=== PATIENT | female | born 1950 | race Caucasian/White ===

== ENCOUNTER → 2018-10-13 18:42 | Outpatient (CLI) | payer MEDICARE, BC, SELFPAY ==
--- NOTE | 2018-10-13 18:48 | DI.MRI.S_ITS ---
PROCEDURE: MR KNEE LT WO CON INDICATIONS: INTERNAL DERANGEMENT OF LEFT KNEE TECHNIQUE: Noncontrast sagittal PD fast spin echo and T2 fast spin echo with fat saturation, sagittal 3-D FLASH with fat saturation; coronal T1 spin echo and PD fast spin echo with fat saturation, and axial PD fast spin echo with fat saturation through the knee. COMPARISON: [facility] Outside Film, RG, KNEE 3VW (LT), 07/30/2018, 20:38. FINDINGS: Image quality: Excellent. Menisci: Lateral meniscus appears intact. There is horizontal tear of medial meniscal anterior horn, body and posterior horn with possible extension to the superior articular surface, for example image 17 series 10 there is also partial extrusion.. Cruciate ligaments: The anterior and posterior cruciate ligaments appear intact. Medial structures: The medial collateral ligament appears intact. The posterior oblique ligament, semimembranosus tendon insertions, oblique popliteal ligament, and meniscocapsular junction appear intact. Mild pes anserinus insertional tendinopathy and/or low-grade bursitis. Lateral structures: Age-indeterminate low-grade sprain of the proximal lateral collateral ligament. The long and short heads of the biceps femoris tendon appear intact. The popliteus tendon appears normal; the popliteofibular ligament appears intact. The posterosuperior and anteroinferior popliteomeniscal fascicles appear intact. The arcuate and fabellofibular ligaments appear intact, on either side of the lateral inferior geniculate artery. Iliotibial band appears normal. Anterior structures: The quadriceps and patellar tendons appear intact. Minimal soft tissue edema adjacent to the proximal patellar tendon Borderline patella rasheed. No femoral trochlear dysplasia or ventral trochlear prominence. No edema in the infrapatellar fat pad. Bones and cartilage: No bone marrow contusions or fractures. Within the medial compartment, diffuse partial thickness loss of the femoral and tibial articular cartilage there Within the lateral compartment, there is intrasubstance signal change involving the weightbearing tibial cartilage without focal defect. Within the patellofemoral compartment, there is full-thickness loss overlying the median patellar ridge with underlying subchondral marrow edema. The femoral trochlear cartilage appears grossly intact. Joint space: Small Helms's cyst is seen measuring approximately 5.2 cm in the cephalocaudad dimension. No intra-articular loose bodies identified. IMPRESSION: Horizontal tear of the medial meniscus as above, with partial extrusion. Degenerative joint disease, most advanced in the medial and patellofemoral compartment as above. Borderline patella rasheed. Small Helms's cyst. Mild insertional pes anserinus tendinopathy and/or developing early bursitis Dictated by: Fermin Mares M.D. on 10/14/2018 at 9:21 Approved by: Fermin Mares M.D. on 10/14/2018 at 9:31
== END ==
PROVIDERS: Visit Provider Orthopaedic Surgery
DX: S83.242A Other tear of medial meniscus, current injury, left knee, initial encounter (principal); M17.12 Unilateral primary osteoarthritis, left knee; M71.22 Synovial cyst of popliteal space [Baker], left knee
CPT/HCPCS: 73721

== ENCOUNTER 2022-04-13 18:14 | Inpatient (IN) | payer MEDICARE, BC, SELFPAY ==
[2022-04-13] VITALS (16 sets, daily range): BP systolic 89–132; BP diastolic 54–70; PULSE 58–75; RESP 9–27; TEMP 36.2–36.4; O2SAT 95–100; BMI 26.2
--- NOTE | 2022-04-13 18:29 | DI.RAD.S_ITS ---
PROCEDURE: XR CHEST 1V INDICATIONS: chest pain TECHNIQUE: One view of the chest was acquired. COMPARISON: None. FINDINGS: Surgical changes and devices: None. Lungs and pleura: Lungs are clear. No pleural effusions or pneumothorax. Mediastinum: Mediastinal contours appear normal. Heart size is normal. Bones and chest wall: No suspicious bony lesions. Overlying soft tissues appear unremarkable. IMPRESSION: No acute cardiopulmonary abnormality. Dictated by: Alfredito Correa M.D. on 04/13/2022 at 18:48 Approved by: Alfredito Correa M.D. on 04/13/2022 at 18:48
--- NOTE | 2022-04-13 18:37 | ED_ITS ---
HPI - Dizziness General Chief Complaint: Dizziness Stated Complaint: nausea/vomitting, low bp, type 1 diabetic Time Seen by Provider: 04/13/22 18:22 Source: patient Mode of arrival: Family Vehicle History of Present Illness HPI Narrative: Patient is a 71-year-old female history of insulin-dependent diabetes presenting today with sudden onset of dizziness and nausea. Apparently at breakfast she started getting very dizzy. She feels like she is on an amusement park ride. Unable to open her eyes. She has been vomiting most of the day. She has no numbness tingling or weakness. No trouble walking. She denies any chest pain or palpitations. She overall does not feel well. She has never had any history of vertigo but or. She initially thought that her glucose was low, 1 reading at home with an Accu-Chek of 50. She drinks juice. However it currently is 155. She was feeling her normal self yesterday. No fever or chills. No known coronary artery disease or CVA. The states they took her blood pressure at home it was in the 80s. She felt dizzy she said it did not stay there and it came back up. Related Data Home Medications Medication Instructions Recorded Confirmed insulin glargine 100 unit/mL 100 unit SUBCUT DAILY 05/13/20 05/13/20 subcutaneous solution (Lantus U-100 Insulin) insulin lispro 100 unit/mL 1 sliding scale dose SUBCUT 05/13/20 05/13/20 subcutaneous cartridge (Humalog USEASDIRECTD U-100 Insulin) Allergies Allergy/AdvReac Type Severity Reaction Status Date / Time No Known Drug Allergies Allergy Verified 04/13/22 18:25 Review of Systems Review of Systems Narrative: GENERAL: Denies chills, fatigue, malaise, fever, sweats, travel HEENT: Denies sinus pain, ear pain, sore throat, difficulty swallowing, neck pain RESPIRATORY: Denies dyspnea, cough, wheezing, hemoptysis, sputum. CARDIOVASCULAR: Denies chest pain, palpitations, orthopnea, edema GASTROINTESTINAL: Denies nausea, vomiting, abdominal pain, diarrhea, constipation, melena. : Denies dysuria, frequency, incontinence, hematuria, urinary retention, flank pain. MUSCULOSKELETAL: Denies weakness, joint pain, or bony pain SKIN: No rash, no erythema, no pruritus NEUROLOGIC: See HPI PSYCHIATRIC: No concerning psychosocial issues. 12 point review of systems is negative except for those stated above and HPI Patient History Medical History (Updated 04/13/22 @ 23:24 by Leandra Mares DO) Diabetes Family History (Updated 04/14/22 @ 00:41 by Emmie Lozoya MD) Father Cancer COPD (chronic obstructive pulmonary disease) Mother No problems noted. Social History household members: spouse Smoking Status: Former smoker Smoking Status: Former smoker tobacco type: cigarettes alcohol intake frequency: holidays/special occasions only Substance Use Type: does not use Exam Initial Vital Signs Initial Vital Signs: Vital Signs Pulse Oximetry 97 04/13/22 18:20 GENERAL: Alert pleasant 71-year-old female appears uncomfortable keeping eyes closed HEENT: Head atraumatic,EOMI, pupils reactive, face symmetric,+ nystagmus when looking to the right,moist mucous membranes CARDIOVASCULAR: Regular rate and rhythm without murmurs, rubs or gallops. RESPIRATORY: Breath sounds equal bilaterally, no wheezes rales or rhonchi. ABDOMEN: Soft, nontender. Normoactive bowel sounds all 4 quadrants. No guarding or rebound. EXTREMITIES: Normal range of motion, no clubbing or edema. Neurovascularly intact NEUROLOGICAL: Alert and oriented x4.Normal gait and speech. Cranial nerves II through XII grossly intact. Good [id number], good [id number], strength equal bilaterally, no dysarthria or aphasia, sensation in tact to soft touch bilaterally, no visual changes, no facial droop SKIN: Warm, dry, no laceration, no petechiae, no rashes or lesions. Scores NIH Stroke Scale Level of Conciousness: Alert, keenly responsive Ask month/age: Answers both questions correctly. Open/close eyes, close hand: Performs both tasks correctly Best gaze horizontal: Normal Visual esposito: No visual loss Facial palsy: Normal symetrical movement Left arm drift: No drift for full 10 sec Right arm drift: No drift for full 10 sec Left leg drift: No drift for full 5 sec Right leg drift: No drift for full 5 sec Limb ataxia: Absent Sensory on face/arms/legs: Normal, no sensory loss Best language: No aphasia, normal Dysarthria: Normal Extinction or inattention: No abnormality Total NIH Stroke scale score: 0 Course Orders Ordered: ED Orders 04/13/22 18:29 XR chest 1V Stat 04/13/22 18:41 CT angio head and neck Stat CT head/brain wo con Stat 04/13/22 19:15 Blood Culture Stat Complete Blood Count AUTO DIFF Stat Comprehensive Metabolic Panel Stat Lactate (Lactic Acid) Stat Lipase Stat Magnesium Stat Procalcitonin Stat Troponin & CK Cardiac Panel Stat 04/13/22 19:44 Urine Culture Stat Urine Microscopic Stat 04/13/22 22:49 COVID19 -Nasal RAPID/Pre-Proc Stat Acetaminophen (Acetaminophen 325 Mg Tablet) 650 mg PO Q6HR PRN PRN Reason: Fever Aspirin (Aspirin Ec 81 Mg Tablet) 81 mg PO DAILY [facility] Atorvastatin Calcium (Atorvastatin 20 Mg Tablet) 80 mg PO BEDTIME [facility] Enoxaparin Sodium (Enoxaparin 40 Mg/0.4 Ml Syringe) 40 mg SUBCUT DAILY [facility] Sodium Chloride (Normal Saline 0.45%) 1,000 mls @ 100 mls/hr IV CONT [facility] Last Admin: 04/14/22 01:49 Dose: 100 mls/hr Documented by: SCOTT Ceftriaxone Sodium 1,000 mg/ (Sodium Chloride) 100 mls @ 200 mls/hr IV Q24H [facility] Last Admin: 04/14/22 01:49 Dose: 200 mls/hr Documented by: SCOTT Meclizine HCl (Meclizine Hcl 12.5 Mg Tablet) 25 mg PO Q6HR PRN PRN Reason: Vertigo Naloxone HCl (Naloxone 0.4 Mg/Ml Vial) 0.2 mg IV Q2MIN PRN PRN Reason: Opiate Reversal Ondansetron HCl (Ondansetron 4 Mg/2 Ml Inj) 4 mg IV Q8HR PRN PRN Reason: Nausea And Vomiting Discontinued Medications Sodium Chloride (Normal Saline 0.9%) 1,000 mls @ 1,000 mls/hr IV BOLUS ONE Stop: 04/13/22 19:39 Last Infusion: 04/13/22 20:53 Dose: 0 mls/hr Documented by: Admin: 04/13/22 18:41 Dose: 1,000 mls/hr Documented by: MARCO Ceftriaxone Sodium 1,000 mg/ (Sodium Chloride) 100 mls @ 200 mls/hr IV NOW ONE Stop: 04/13/22 20:30 Last Infusion: 04/13/22 21:30 Dose: 0 mls/hr Documented by: Admin: 04/13/22 20:42 Dose: 200 mls/hr Documented by: MARCO Sodium Chloride (Normal Saline 0.9%) 1,000 mls @ 1,000 mls/hr IV BOLUS ONE Stop: 04/13/22 21:28 Last Infusion: 04/13/22 22:36 Dose: 0 mls/hr Documented by: Admin: 04/13/22 20:43 Dose: 1,000 mls/hr Documented by: MARCO Meclizine HCl (Meclizine Hcl 12.5 Mg Tablet) 25 mg PO NOW ONE Stop: 04/13/22 18:42 Last Admin: 04/13/22 19:05 Dose: 25 mg Documented by: MARCO Meclizine HCl (Meclizine Hcl 12.5 Mg Tablet) 25 mg PO NOW ONE Stop: 04/13/22 21:57 Last Admin: 04/13/22 22:02 Dose: 25 mg Documented by: MARCO Ondansetron HCl (Ondansetron 4 Mg/2 Ml Inj) 4 mg IV NOW ONE Stop: 04/13/22 18:42 Last Admin: 04/13/22 19:05 Dose: 4 mg Documented by: MARCO Ondansetron HCl (Ondansetron 4 Mg/2 Ml Inj) 4 mg IV NOW ONE Stop: 04/13/22 20:30 Last Admin: 04/13/22 20:42 Dose: 4 mg Documented by: MARCO Pantoprazole Sodium (Pantoprazole 40 Mg Vial) 40 mg IV NOW ONE Stop: 04/13/22 20:30 Last Admin: 04/13/22 20:42 Dose: 40 mg Documented by: MARCO Vital Signs Vital signs: Vital Signs - 8 hr 04/13/22 19:00 04/13/22 19:30 04/13/22 20:27 Pulse Rate 65 58 L 68 Respiratory Rate 20 12 27 H Blood Pressure Pulse Oximetry 100 100 95 04/13/22 20:29 04/13/22 20:30 04/13/22 21:00 Pulse Rate 65 64 65 Respiratory Rate 11 L 9 L 14 Blood Pressure 107/63 108/57 L 98/60 Pulse Oximetry 100 99 04/13/22 21:30 04/13/22 21:31 04/13/22 22:00 Pulse Rate 64 64 75 Respiratory Rate 12 20 14 Blood Pressure 89/54 L 96/54 L 116/70 Pulse Oximetry 04/13/22 22:30 Pulse Rate 58 L Respiratory Rate 12 Blood Pressure 102/56 L Pulse Oximetry 100 MDM - Dizziness Lab Data Result diagrams: 04/13/22 19:15 04/13/22 19:15 Labs: Lab Results 04/13/22 04/13/22 04/13/22 Range/Units 19:15 19:15 19:15 WBC 7.4 (4.5-11.0) X10^3/uL RBC 4.17 (4.0-5.2) X10^6/uL Hgb 11.7 L (12.0-16.0) g/dL Hct 34.7 L (36-46) % MCV 83.2 (80-100) fL MCH 28.1 (26-34) PG MCHC 33.7 (30-36) % RDW 13.2 (11.6-14.8) % Plt Count 235 (150-400) X10^3/uL Neut % (Auto) 67.8 (50-75) % Lymph % (Auto) 21.6 L (25-40) % [place] % (Auto) 8.1 (3-14) % Eos % (Auto) 1.6 L (2-4) % Baso % (Auto) 0.9 (0-2) % Neut # (Auto) 5000 (6961-2407) /uL Lymph # (Auto) 1600 (4500-7417) /uL [place] # (Auto) 600 (0-900) /uL Eos # (Auto) 100 (0-450) /uL Baso # (Auto) 100 (0-100) /uL Sodium 130 L (137-145) mmol/L Potassium 4.4 (3.4-5.1) mmol/L Chloride 100 (98-107) mmol/L Carbon Dioxide 22 (22-32) mmol/L BUN 18 H (7-17) mg/dL Creatinine 0.65 (0.52-1.04) mg/dL Estimated GFR > 60 (>60) mL/min BUN/Creatinine Ratio 27.7 H (6-22) Glucose 145 H (80-110) mg/dL Lactate 1.1 (0.7-2.1) mmol/L Calcium 8.1 L (8.4-10.2) mg/dL Magnesium 1.6 (1.6-2.3) mg/dL Total Bilirubin 0.7 (0.2-1.3) mg/dL AST 24 (14-36) IU/L ALT 18 (<35) IU/L Alkaline Phosphatase 83 (38-126) U/L Total Creatine Kinase 140 H (30-135) U/L CK-MB (CK-2) 2.06 (<2.37) ng/mL CK-MB (CK-2) Rel Index 1.5 (1.5-5.0) % Troponin I < 0.012 (0.01-0.034) ng/mL Total Protein 7.7 (6.3-8.2) g/dL Albumin 3.7 (3.5-5.0) g/dL Globulin 4.0 (1.7-4.1) g/dL Albumin/Globulin Ratio 0.9 L (1.0-2.8) Lipase 31 (23-300) U/L Procalcitonin (<0.5) ng/mL Urine RBC (0-5/HPF) Urine WBC (0-5/HPF) Ur Squamous Epith Cells (0-5/HPF) Ur Transition Epith Cell (0-5/HPF) Urine Bacteria (None) Ur Culture Indicated? SARS-CoV-2 (PCR) (Negative) 04/13/22 04/13/22 04/13/22 Range/Units 19:15 19:44 22:49 WBC (4.5-11.0) X10^3/uL RBC (4.0-5.2) X10^6/uL Hgb (12.0-16.0) g/dL Hct (36-46) % MCV (80-100) fL MCH (26-34) PG MCHC (30-36) % RDW (11.6-14.8) % Plt Count (150-400) X10^3/uL Neut % (Auto) (50-75) % Lymph % (Auto) (25-40) % [place] % (Auto) (3-14) % Eos % (Auto) (2-4) % Baso % (Auto) (0-2) % Neut # (Auto) (2332-6102) /uL Lymph # (Auto) (4132-9051) /uL [place] # (Auto) (0-900) /uL Eos # (Auto) (0-450) /uL Baso # (Auto) (0-100) /uL Sodium (137-145) mmol/L Potassium (3.4-5.1) mmol/L Chloride (98-107) mmol/L Carbon Dioxide (22-32) mmol/L BUN (7-17) mg/dL Creatinine (0.52-1.04) mg/dL Estimated GFR (>60) mL/min BUN/Creatinine Ratio (6-22) Glucose (80-110) mg/dL Lactate (0.7-2.1) mmol/L Calcium (8.4-10.2) mg/dL Magnesium (1.6-2.3) mg/dL Total Bilirubin (0.2-1.3) mg/dL AST (14-36) IU/L ALT (<35) IU/L Alkaline Phosphatase (38-126) U/L Total Creatine Kinase (30-135) U/L CK-MB (CK-2) (<2.37) ng/mL CK-MB (CK-2) Rel Index (1.5-5.0) % Troponin I (0.01-0.034) ng/mL Total Protein (6.3-8.2) g/dL Albumin (3.5-5.0) g/dL Globulin (1.7-4.1) g/dL Albumin/Globulin Ratio (1.0-2.8) Lipase (23-300) U/L Procalcitonin 0.05 (<0.5) ng/mL Urine RBC None seen (0-5/HPF) Urine WBC 5-10/hpf H (0-5/HPF) Ur Squamous Epith Cells 1-5 /hpf (0-5/HPF) Ur Transition Epith Cell 0-1/hpf (0-5/HPF) Urine Bacteria Many (>30) H (None) Ur Culture Indicated? Specimen cultured SARS-CoV-2 (PCR) Negative (Negative) Urine Dip Bedside Urine Glucose Negative Bedside Urine Bilirubin - Negative Bedside Urine Ketone + 15 Urine Specific [place] 1.01 Bedside Urine Occult Blood - Negative Bedside Urine pH 6.5 Bedside Urine Protein - Negative Bedside Urine Urobilinogen - Negative Bedside Urine Nitrite + Positive Bedside Urine Leukocytes + [address] scan - head: Radiologist's Impression: Signed Patient: Larisa Chavez MR#: [id number] : 1950 Acct:[id number] Age/Sex: 71 / F Date of Service: 04/13/22 Loc: ED Accession Number: [id number] ?? Procedure: CT head/brain wo con Ordering Provider: Leandra Mares D.O. PROCEDURE:? CT HEAD/BRAIN WO CON ? INDICATIONS:? dizzy ? TECHNIQUE:? Noncontrast 4.5 mm thick angled axial sections acquired from the foramen magnum to the vertex, with coronal and sagittal reformats.? For radiation dose reduction, the following was used:? automated exposure control, adjustment of mA and/or kV according to patient size.? ? COMPARISON:? None. ? FINDINGS:? Image quality:? Excellent.? ? CSF spaces:? Basal cisterns are patent.? No extra-axial fluid collections.? Ventricles are normal in size and shape.? ? Brain:? No midline shift.? No intracranial masses or hemorrhage.? Palomo-white matter interface is normal.? Moderate cerebral and cerebellar volume loss with multifocal white matter chronic ischemic change noted. ? Skull and face:? Calvarium and visualized facial bones are intact, without suspicious lesions.? ? Sinuses:? Visualized sinuses and mastoids are clear.? ? IMPRESSION:? Atrophy and chronic ischemic change without acute hemorrhage or mass effect ? ? ? Approved by: Alin Beltre M.D. on 04/13/2022 at 18:20 CTA - brain/neck: Radiologist's Impression: DISHA Este[place] [id number] CT Scan Report Signed Patient: Larisa Chavez MR#: [id number] : 1950 Acct:[id number] Age/Sex: 71 / F Date of Service: 04/13/22 Loc: ED Accession Number: [id number] ?? Procedure: CT angio head and neck Ordering Provider: Leandra Mares D.O. PROCEDURE:? CT ANGIO HEAD AND NECK ? INDICATIONS:? dizzy ? TECHNIQUE:? Pre-contrast 4.5 mm thick sections acquired from the foramen magnum to the v ertex.? After the administration of intravenous contrast, 1 mm thick sections acquired from the aortic arch through the [place] of [place].? Post-contrast 4.5 mm thick sections then re- acquired from the foramen magnum to the vertex.? For radiation dose reduction, the following was used:? automated exposure control, adjustment of mA and/or kV according to patient size.? ? ? COMPARISON:? None. ? FINDINGS: ? Cerebral CT Angiogram: ? Internal carotid arteries:? No acute findings.? Intracranial ICA are patent with no significant stenosis.? No occlusion.? No aneurysm. Anterior cerebral arteries:? Unremarkable.? No significant stenosis.? No occlusion.? No aneurysm. Middle cerebral arteries:? Unremarkable.? No significant stenosis.? No occlusion.? No aneurysm. Posterior cerebral arteries:? Hypoplasia/aplasia of the left P1 RECONCILER noted. The P2 segment is supplied by a widely patent posterior communicating artery. Remainder of the distal vasculature unremarkable. Basilar artery:? Unremarkable.? No significant stenosis.? No occlusion.? No aneurysm. Vertebral arteries:? Unremarkable as visualized. Dural venous sinuses:? Unremarkable given phase of enhancement. Other:? Arterial phase brain parenchyma is unremarkable. ? Neck CT Angiogram: ? Internal carotid arteries:? Unremarkable.? No significant stenosis.? No dissection or occlusion. Common carotid arteries:? Unremarkable.? No significant stenosis.? No dissection or occlusion. External carotid arteries:? Unremarkable.? No occlusion. Vertebral arteries:? Unremarkable.? No significant stenosis.? No dissection or o cclusion. Other: None. ? Aortic Arch and Mediastinum:? Partially visualized aortic arch unremarkable without evidence of aneurysm. Origins of the great vessels unremarkable. ? IMPRESSION: ? 1. Unremarkable CT angiogram of the head and neck without evidence of large vessel occlusion, aneurysm or vascular malformation ? ? Note: Any reported proximal ICA stenosis was calculated using NASCET guideline s.? Approved by: Alin Beltre M.D. on 04/13/2022 at 18:19? ECG Data Interpretation: Normal sinus rhythm rate 61 DE interval 160 QRS [address] changes no T- wave inversion, no pirors to compare MDM Narrative Medical decision making narrative: The patient has no focal deficits but she does have nystagmus. Upon ambulation to the restroom she had obvious ataxia and needed a quite a bit of assistance. She is found to have a UTI with nitrates in her urine. No signs of sepsis she has no leukocytosis or fever although she is complaining of being quite chilled here in the ED. CT head and CT angio are negative. A blood pressure started d ecreasing some is she is given 2 L of IV fluid never really hypotensive. She is given 2 doses of meclizine the 1st dose did seem to help some. She has also been given 2 doses of Zofran she is no longer vomiting but she still complains of quite a bit of nausea. Upon re trial of ambulation high did it myself she is unable to take steps by herself at all. She needs a walker which is completely abnormal for her. 3rd for possible posterior stroke. Orthostatic hypotension should really not cause significant ataxia and moves the orthostatic hypotension should be resolved after 2 L of normal saline. She does have a UTI over the should not cause significant ataxia either. She is very unsafe discharge home. Her elderly is not able to help her. Dr. Marcum accepts patient Discharge Plan Departure Patient Disposition: Admitted as Observation Clinical Impression: Brain TIA, Acute UTI Admit Date/Time: 04/13/22 22:54 Admit Provider: Emmie Lozoya
[2022-04-13] MEDS: SODIUM CHLORIDE 0.9% 1,000 ML 1000 ML IV ×2 (18:41→20:43)
--- NOTE | 2022-04-13 18:41 | DI.CT.S_ITS ---
PROCEDURE: CT HEAD/BRAIN WO CON INDICATIONS: dizzy TECHNIQUE: Noncontrast 4.5 mm thick angled axial sections acquired from the foramen magnum to the vertex, with coronal and sagittal reformats. For radiation dose reduction, the following was used: automated exposure control, adjustment of mA and/or kV according to patient size. COMPARISON: None. FINDINGS: Image quality: Excellent. CSF spaces: Basal cisterns are patent. No extra-axial fluid collections. Ventricles are normal in size and shape. Brain: No midline shift. No intracranial masses or hemorrhage. Palomo-white matter interface is normal. Moderate cerebral and cerebellar volume loss with multifocal white matter chronic ischemic change noted. Skull and face: Calvarium and visualized facial bones are intact, without suspicious lesions. Sinuses: Visualized sinuses and mastoids are clear. IMPRESSION: Atrophy and chronic ischemic change without acute hemorrhage or mass effect Approved by: Alin Beltre M.D. on 04/13/2022 at 18:20
--- NOTE | 2022-04-13 18:41 | DI.CT.S_ITS ---
PROCEDURE: CT ANGIO HEAD AND NECK INDICATIONS: dizzy TECHNIQUE: Pre-contrast 4.5 mm thick sections acquired from the foramen magnum to the vertex. After the administration of intravenous contrast, 1 mm thick sections acquired from the aortic arch through the [place] of [place]. Post-contrast 4.5 mm thick sections then re-acquired from the foramen magnum to the vertex. For radiation dose reduction, the following was used: automated exposure control, adjustment of mA and/or kV according to patient size. COMPARISON: None. FINDINGS: Cerebral CT Angiogram: Internal carotid arteries: No acute findings. Intracranial ICA are patent with no significant stenosis. No occlusion. No aneurysm. Anterior cerebral arteries: Unremarkable. No significant stenosis. No occlusion. No aneurysm. Middle cerebral arteries: Unremarkable. No significant stenosis. No occlusion. No aneurysm. 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 The P2 segment is supplied by a widely patent posterior communicating artery. Remainder of the distal vasculature unremarkable. Basilar artery: Unremarkable. No significant stenosis. No occlusion. No aneurysm. Vertebral arteries: Unremarkable as visualized. Dural venous sinuses: Unremarkable given phase of enhancement. Other: Arterial phase brain parenchyma is unremarkable. Neck CT Angiogram: Internal carotid arteries: Unremarkable. No significant stenosis. No dissection or occlusion. Common carotid arteries: Unremarkable. No significant stenosis. No dissection or occlusion. External carotid arteries: Unremarkable. No occlusion. Vertebral arteries: Unremarkable. No significant stenosis. No dissection or occlusion. Other: None. Aortic Arch and Mediastinum: Partially visualized aortic arch unremarkable without evidence of aneurysm. Origins of the great vessels unremarkable. IMPRESSION: 1. Unremarkable CT angiogram of the head and neck without evidence of large vessel occlusion, aneurysm or vascular malformation Note: Any reported proximal ICA stenosis was calculated using NASCET guidelines. Approved by: Alin Beltre M.D. on 04/13/2022 at 18:19
[2022-04-13] MEDS: ONDANSETRON 4 MG/2 ML INJ IV ×2 (19:05→20:42)
[2022-04-13] MEDS: MECLIZINE HCL 12.5 MG TABLET 25 MG PO ×2 (19:05→22:02)
[2022-04-13 19:25] LABS: Add Manual Diff / Slide Review NO; Basophils Absolute Auto 100 /uL (0-100); Basophils Percent Auto 0.9 % (0-2); Eosinophils Absolute Auto 100 /uL (0-450); Eosinophils Percent Auto 1.6 % (2-4); Hematocrit 34.7 % (36-46); Hemoglobin 11.7 g/dL (12.0-16.0); Lymphocytes Absolute Auto 1600 /uL (1100-4500); Lymphocytes Percent Auto 21.6 % (25-40); Mean Corpuscular HGB Conc 33.7 % (30-36); Mean Corpuscular Hemoglobin 28.1 PG (26-34); Mean Corpuscular Volume 83.2 fL (80-100); Monocytes Absolute Auto 600 /uL (0-900); Monocytes Percent Auto 8.1 % (3-14); Neutrophils Absolute Auto 5000 /uL (1500-7000); Neutrophils Percent Auto 67.8 % (50-75); Platelet Count 235 X10^3/uL (150-400); Red Blood Cell Count 4.17 X10^6/uL (4.0-5.2); Red Cell Distribution Width 13.2 % (11.6-14.8); White Blood Cell Count 7.4 X10^3/uL (4.5-11.0)
[2022-04-13 19:47] LABS: Alanine Aminotransferase 18 IU/L (<35); Albumin 3.7 g/dL (3.5-5.0); Alkaline Phosphatase 83 U/L (38-126); Aspartate Aminotransferase 24 IU/L (14-36); BUN Creatinine Ratio 27.7 (6-22); Bilirubin Total 0.7 mg/dL (0.2-1.3); Blood Urea Nitrogen 18 mg/dL (7-17); Calcium 8.1 mg/dL (8.4-10.2); Carbon Dioxide 22 mmol/L (22-32); Chloride 100 mmol/L (98-107); Creatine Kinase 140 U/L (30-135); Estimated Glomerular Filt Rate > 60 mL/min (>60); Glucose 145 mg/dL (80-110); Magnesium 1.6 mg/dL (1.6-2.3); Potassium 4.4 mmol/L (3.4-5.1); Sodium 130 mmol/L (137-145); Total Protein 7.7 g/dL (6.3-8.2)
[2022-04-13 19:48] LABS: Albumin Globulin Ratio 0.9 (1.0-2.8); HEMOLYSIS < 15 (0-50); Lipase 31 U/L (23-300)
[2022-04-13 19:58] LABS: Troponin I < 0.012 ng/mL (0.01-0.034)
[2022-04-13 20:03] LABS: CKMB % Relative Index 1.5 % (1.5-5.0); Creatine Kinase MB 2.06 ng/mL (<2.37)
[2022-04-13 20:05] LABS: RBC Urine None Seen (0-5/HPF); Squamous Epithelial Cell Urine 1-5 /HPF (0-5/HPF); Transitional Epi Cells Urine 0-1/HPF (0-5/HPF); WBC Urine 5-10/HPF (0-5/HPF)
[2022-04-13 20:06] LABS: Bacteria Urine Many (>30); Culture Indicated Urine Specimen Cultured
[2022-04-13] MEDS: PANTOPRAZOLE 40 MG VIAL IV (20:42)
[2022-04-13] MEDS: cefTRIAXone 1,000 MG in SODIUM CHLORIDE 0.9% 100 ML 200 MG IV (20:42)
[2022-04-13 21:44] LABS: Lactate (Lactic Acid) 1.1 mmol/L (0.7-2.1)
[2022-04-13 22:06] LABS: Procalcitonin 0.05 ng/mL (<0.5)
[2022-04-13 23:13] LABS: COVID19 -Nasal RAPID Negative (Negative)
[2022-04-14] VITALS (8 sets, daily range): BP systolic 92–117; BP diastolic 51–57; PULSE 63–80; RESP 14–19; TEMP 36.5–37.5; O2SAT 95–100; BMI 26.2
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
--- NOTE | 2022-04-14 00:41 | DI.MRI.S_ITS ---
PROCEDURE: MR HEAD/BRAIN WO CON INDICATIONS: Vertigo vs. posterior circulation CVA TECHNIQUE: Non-contrast axial T1 spin echo, axial T2 fast spin echo, sagittal and axial FLAIR, coronal T2 fast spin echo, axial gradient echo, axial diffusion and ADC through the brain. COMPARISON: [facility], CT, CT HEAD/BRAIN WO CON, 04/13/2022, 18:44. [facility], CT, CT ANGIO HEAD AND NECK, 04/13/2022, 18:44. FINDINGS: Image quality: Excellent. CSF spaces: Ventricles and extra-axial CSF spaces are mildly prominent, within normal limits for patient's age.. Basal cisterns are patent. No extra-axial fluid collections. Brain: No intracranial bleeds or mass effects. There is mild cerebral volume loss for age. There is minimal T2/FLAIR hyperintense white matter foci. This is not greater than expected for patient's age. Brainstem appears normal. Diffusion-weighted images show no acute ischemic insults. No chronic ischemic insults. Normal intravascular flow voids are present. No suspicious susceptibility artifact. Skull and face: Calvarial bone marrow is normal in signal. Orbits are normal. Sinuses: Minimal mucosal thickening of the ethmoid air cells and small mucous retention cyst within the right maxillary sinus. Mastoid air cells are clear. IMPRESSION: Unremarkable MRI brain for patient's age. No evidence of ischemia. Very mild microvascular ischemic changes and cerebral volume loss not greater than expected for patient's age. Dictated by: Hay Morales D.O. on 04/14/2022 at 9:08 Approved by: Hay Morales D.O. on 04/14/2022 at 9:14
[2022-04-14] MEDS: cefTRIAXone 1,000 MG in SODIUM CHLORIDE 0.9% 100 ML 200 MG IV (01:49)
[2022-04-14] MEDS: SODIUM CHLORIDE 0.45% 1,000 ML 100 ML IV ×2 (01:49→18:27)
[2022-04-14 03:53] LABS: Add Manual Diff / Slide Review NO; Basophils Absolute Auto 100 /uL (0-100); Eosinophils Absolute Auto 200 /uL (0-450); Eosinophils Percent Auto 2.7 % (2-4); Hematocrit 35.7 % (36-46); Hemoglobin 12.2 g/dL (12.0-16.0); Lymphocytes Absolute Auto 1800 /uL (1100-4500); Lymphocytes Percent Auto 26.2 % (25-40); Mean Corpuscular Hemoglobin 28.3 PG (26-34); Mean Corpuscular Volume 83.3 fL (80-100); Monocytes Absolute Auto 600 /uL (0-900); Monocytes Percent Auto 8.7 % (3-14); Neutrophils Absolute Auto 4300 /uL (1500-7000); Neutrophils Percent Auto 61.4 % (50-75); Platelet Count 241 X10^3/uL (150-400); Red Blood Cell Count 4.29 X10^6/uL (4.0-5.2); Red Cell Distribution Width 13.3 % (11.6-14.8); White Blood Cell Count 6.9 X10^3/uL (4.5-11.0)
[2022-04-14 04:00] LABS: BUN Creatinine Ratio 19.4 (6-22); Blood Urea Nitrogen 12 mg/dL (7-17); Calcium 7.8 mg/dL (8.4-10.2); Carbon Dioxide 22 mmol/L (22-32); Chloride 107 mmol/L (98-107); Cholesterol 189 mg/dL (140-199); Estimated Glomerular Filt Rate > 60 mL/min (>60); Glucose 137 mg/dL (80-110); HDL Cholesterol 50 mg/dL (40-60); HEMOLYSIS < 15 (0-50); LDL Cholesterol Calculated 127 mg/dL (<100); Potassium 3.9 mmol/L (3.4-5.1); Sodium 135 mmol/L (137-145); Triglycerides 61 mg/dL (35-150)
[2022-04-14 04:36] LABS: Thyroid Stimulating Hormone 2.65 uIU/mL (0.47-4.68)
--- NOTE | 2022-04-14 05:46 | PC.NURSE ---
Addendum entered by Myrna Rodas R.N. 04/14/22 07:39: At 0630 notified Flor, pharmacist of insulin pump and Dexcom for identification. Original Note: Patient arrived on unit approximately 2315 from ED via stretcher, AAOX3, unsteady on her feet, needs one assist for balance, wearing her home insulin pump and Dexcom glucometer, current Dexcom reading is BS 122. Patient does not want to take her insulin pump off. Dr. Lozoya at bedside, aware patient wants to keep insulin pump on. See doctor communication order informing ok for patient to continue to wear home insulin pump. Hospital Blood Glucose readings will be done once per shift. field return repairer, Marissa Millan informed patient refusing to follow IH protocol for no insulin pumps and that there is a doctor order authorizing use of home insulin pump. NIH on admit and Q4hr check scored zero. Up to BSC with one assist. SR 65 with occasional PVC.
[2022-04-14 05:59] LABS: Appearance Urine UA CLEAR; Bilirubin Urine UA NEGATIVE (NEGATIVE); Color Urine UA YELLOW; Glucose Urine UA NEGATIVE (Negative); Ketones Urine UA NEGATIVE (NEGATIVE); Leukocyte Esterase Urine UA 1+ (NEGATIVE); Nitrite Urine UA NEGATIVE (Negative); Occult Blood Urine UA NEGATIVE (Negative); Protein Urine UA NEGATIVE (Negative); Specific Gravity Urine UA <=1.005 (1.000-1.035); Urobilinogen Urine UA 0.2 E.U./dL (0.2)
[2022-04-14 06:02] LABS: pH Urine UA 6.5 (4.5-8.0)
[2022-04-14 06:37] LABS: Bacteria Urine None Seen; Culture Indicated Urine Specimen Cultured; RBC Urine None Seen (0-5/HPF); Squamous Epithelial Cell Urine None Seen (0-5/HPF); WBC Urine 1-5/HPF (0-5/HPF)
[2022-04-14] MEDS: ASPIRIN EC 81 MG TABLET PO (10:16)
[2022-04-14] MEDS: ENOXAPARIN 40 MG/0.4 ML SYRINGE SUBCUT (10:16)
--- NOTE | 2022-04-14 11:06 | CM.DANOTE ---
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 CT, CTA, and MRI was performed. CT and CTA did not reveal any acute stroke or occlusion. MRI was to be performed in the AM. MRI results available and awaiting MD to see the patient and share those results. If MRI is negative, pt could discharge today. If MRI reveals evidence of stroke, further workup will be needed. DCP met with pt beside. Pt spouse in chair sleeping. DCP introduced herself and role. Pt states she lives in [place] with her spouse and is independent with ADL's at baseline. Pt denies usage of walker or any other DME's. Pt states still driving POV. Pt states they bowl and golf all the time. Pt denies any assistance post discharge. DCP updated white board with contact info. Instructed pt to call if any further concerns arise. P: Once medically stable, discharge home via spouse POV. DCP to continue to follow. Sita Grande RN/JACQUELINE Discharge Planning/Care Management CM Discharge Assessment Start: 04/14/22 11:05 Freq: Status: Active Protocol: Document 04/14/22 11:05 TANESHA (Rec: 04/14/22 11:06 TANESHA [id number]) Discharge Planning Assessment Assigned Mucker Operator Sita Grande RN/JACQUELINE Advance Directives? No History Provided By Patient Prior Living Arrangements House Household Members spouse Type of transporation used prior to Drives own vehicle admit Independent with ADL's Yes Is patient alert and oriented? Yes Caregiver for Another No Barriers to Discharge No Discharge Plan Home Referrals Initiated None needed Whiteboard Updated in Patient Room with Yes name and ext. # of Mucker Operator Comment Instructed pt to call with any questions Review Status In Process Please Provide Date Initial DC 04/14/22 Assessment Was Performed Next Review Type Continued Stay Review
--- NOTE | 2022-04-14 11:51 | PT.IIE ---
Current Diagnoses Type 2 diabetes mellitus without complications (04/13/22) Medical History (Last Updated 04/13/22 @ 22:54 by Leandra Mares DO) Diabetes Physical Therapy Inpatient Evaluation/Re-Eval M1 PT/OT-IP Prior Functional Status Start: 04/14/22 13:29 Freq: NEEDED Status: Active Protocol: Document 04/14/22 11:51 AB (Rec: 04/14/22 13:48 AB [id number]) Medical Review Prior Functional Status Medical History Reviewed Yes Communication able to make needs known Mobility and Gait pt stated that she is independent with all mobilities and ambulation without AD; stated that she is very active Social History Household Members spouse Living Arrangements House Number of Floors (Floors) One Floor Number of Stairs To Enter/Railing? ramp to enter Home Environment High Toilet,Walk in Shower Home Equipment Hand Held Shower,Grab Bars Near Toilet M2 PT-IP Current Condition Start: 04/14/22 13:29 Freq: NEEDED Status: Active Protocol: Document 04/14/22 11:51 AB (Rec: 04/14/22 13:48 AB [id number]) Physical Therapy Current Condition Current Condition Evaluation Date 04/14/22 Treatment Diagnosis nausea/vomitting; UTI; difficulty in walking Onset Date 04/13/22 M3 PT-IP Subjective Start: 04/14/22 13:29 Freq: NEEDED Status: Active Protocol: Document 04/14/22 11:51 AB (Rec: 04/14/22 13:48 AB [id number]) Subjective Physical Therapy Visit Type Type Initial Evaluation Visit Start Time 11:51 Visit Stop Time 12:37 Total Visit Minutes 46 Number of BUSINESS SERVICES CLERK Visits 0 Physical Therapy Visit Comments Patient Comments agreeable to do PT M4 PT-IP Mobility and Gait Start: 04/14/22 13:29 Freq: NEEDED Status: Active Protocol: Document 04/14/22 11:51 AB (Rec: 04/14/22 13:48 AB [id number]) PT-Bed Mobility Assessment Supine to Sit Supine to Sit Independent PT-Transfer Assessment Sit to and From Stand Sit to and from Stand Contact Guard Assistance,Use of Upper Extremities Equipment Transfer Assistive Device None,Gait Belt,Front Wheeled Walker Orthotic/Prosthetic Devices or Brace: No Comments Mobility Comments pt stated that she is not dizzy or nauseated any but just lightheaded/fuzzy feeling . BP monitored. BP in bed: 111/55. pt stated that her norm is ~ 110/70. pt completed supine to sit independent. same level of lightheadness but no dizziness . no nystagmus noted. BP in initial sittin/56. pt sat for 2 more minutes. no change in symptoms. BP checked: 99/56. pt completed sit to stand CGA and able to stand CGA. BP checked: 89/53. pt stood for 2 more minutes and BP: 99/54. pt ambulated in room without AD min A to mod A and max cues with unsteady ataxic gait and increase leaning to one side with LE lifting off the floor requiring mod A for rebalance. unable to walk and straight line. assessed ambulation using FWW. educated pt on how use a FWW . completed ambulation using fWW CGA to min and max cues. very guarded gait. pt sat back on EOB. BP checked: 94/53 . set up lunch. call light and table placed within reach. informed nurse and doctor regarding pt's mobility and low BP. Gait Assessment Gait Gait Assistance Required: Contact Guard Assist,Minimum Assistance,Moderate Assistance ,1 Person Assist Distance (Feet) 30 Able to Maintain Weight Bearing Status Yes During Gait Assistive Devices Assistive Device None,Gait Belt,Front Wheeled Walker Orthotic/Prosthetic Devices or Brace: No Gait Deviations General Gait Pattern Ataxic,Decreased Stride Length ,Decreased Feet Clearance Factors Limiting Gait Function Factors Limiting Gait Function Decreased Activity Tolerance, Decreased Strength,Poor Balance,Poor Safety Awareness PT-Balance Assessment Sitting Balance and Reactions Static Sitting Balance Ability Good Dynamic Sitting Balance Ability Good Standing Balance and Reactions Static Standing Balance Ability Fair Dynamic Standing Balance Ability Poor Device Used without AD M5 PT-IP Objective Assessments Start: 04/14/22 13:29 Freq: NEEDED Status: Active Protocol: Document 04/14/22 11:51 AB (Rec: 04/14/22 13:48 AB [id number]) Orientation Orientation/Cognition Level of Alertness Alert Orientation Name,Place,Situation Safety Awareness Decreased Safety Awareness Gross Range of Motion Lower Extremity ROM Assessment Within Functional Limits Strength Lower Extremity Strength Assessment Within Functional Limits Sensation Assessment Sensation Gross Sensation WNL Muscle Tone Muscle Tone WNL Yes M6 PT-IP Treatment Start: 04/14/22 13:29 Freq: NEEDED Status: Active Protocol: Document 04/14/22 11:51 AB (Rec: 04/14/22 13:48 AB [id number]) Physical Therapy Treatment Education Education Provided Safety M7 PT-IP Assessment and Plan Start: 04/14/22 13:29 Freq: NEEDED Status: Active Protocol: Document 04/14/22 11:51 AB (Rec: 04/14/22 13:48 AB [id number]) PT Summary Assessment and Plan Potential Rehabilitation Potential Fair Status of Condition at Evaluation Evolving Summary Impairments Pain,ROM,Strength,Balance, Coordination,Sensation,Tone, Cognition,Bed Mobility, Transfers,Gait,Activity Tolerance Assessment Summary pt requiring min to mod A with ambulation without AD; CGA to min A using fWW and with very unsteady gait. pt will require 24/7 assist at this time. d/c plan depending on progress and how much spouse will be able to assist pt but may require SNF rehab at this time. will continue to assess for safe d/c plan. Goals Bed Mobility Goal Independent Transfer Goal Independent,Front Wheeled Walker Gait Goal Independent,Front Wheel Walker Gait Distance 200 Other Goals ambulation without AD 250 ft mod I Days to Meet Goals 10 Frequency of Treatment Frequency Of Treatment Once a Day Treatment Plan Physical Therapy Treatment Plan Bed Mobility Training,Transfer Training,Gait Training, Therapeutic Exercise,Balance Retraining,Discharge Planning, Hot or Cold Pack,Neuromuscular Re-ed,Coordination Retraining Precautions Other Precautions falls, BP Recommendations To Nursing Amount of Assist Needed 1 Person Assist Discharge Recommendations PT Discharge Recommendations Home with 24/7 Assist Available,Home Health,SNF Rehab,Home vs SNF Equipment Needed for Home Before FWW if pt goes home and not Discharge safe without AD Transportation Needs at Discharge Private Vehicle,Wheelchair/ Cabulance
--- NOTE | 2022-04-14 18:00 | PM.PN.1 ---
Subjective Subjective Date Patient Seen: 04/14/22 Interval history: 71-year-old female with insulin-dependent diabetes admitted due to dizziness and low BP. Patient noted symptomatically orthostatic with PT. states her usual BP runs 100 to 107/70 at home. She has been a little lower here. Also noted some periods of sinus bradycardia and PVCs on telemetry. Patient states has history of premature beats. Currently heart rate in the 70s and regular. MRI did not show stroke. She is being treated for UTI with urine culture growing Gram-negative bacilli. Exam Vital Signs (past 8 hours): - 04/14/22 11:00 04/14/22 12:30 04/14/22 15:00 Temperature 97.7 F 98.1 F Pulse Rate 78 Respiratory Rate 19 Blood Pressure 94/53 L 117/56 L Pulse Oximetry 96 98 04/14/22 17:30 Temperature Pulse Rate 73 Respiratory Rate 19 Blood Pressure Pulse Oximetry 95 Oxygen Delivery Method Room Air Oxygen Flow Rate 0 Narrative Exam Narrative: General: Alert very pleasant female sitting up and eating lunch, not in acute distress Lungs: Clear Heart: Regular rhythm Extremities: No edema Neurological speech fluent, affect normal, no localizing signs Objective Labs Result Diagrams: 04/14/22 03:32 04/14/22 03:32 Labs: Laboratory Results - last 24 hr 04/13/22 04/13/22 04/13/22 19:15 19:15 19:15 WBC 7.4 RBC 4.17 Hgb 11.7 L Hct 34.7 L MCV 83.2 MCH 28.1 MCHC 33.7 RDW 13.2 Plt Count 235 Neut % (Auto) 67.8 Lymph % (Auto) 21.6 L [place] % (Auto) 8.1 Eos % (Auto) 1.6 L Baso % (Auto) 0.9 Neut # (Auto) 5000 Lymph # (Auto) 1600 [place] # (Auto) 600 Eos # (Auto) 100 Baso # (Auto) 100 Sodium 130 L Potassium 4.4 Chloride 100 Carbon Dioxide 22 BUN 18 H Creatinine 0.65 Estimated GFR > 60 BUN/Creatinine Ratio 27.7 H Glucose 145 H Lactate 1.1 Calcium 8.1 L Magnesium 1.6 Total Bilirubin 0.7 AST 24 ALT 18 Alkaline Phosphatase 83 Total Creatine Kinase 140 H CK-MB (CK-2) 2.06 CK-MB (CK-2) Rel Index 1.5 Troponin I < 0.012 Total Protein 7.7 Albumin 3.7 Globulin 4.0 Albumin/Globulin Ratio 0.9 L Triglycerides Cholesterol LDL Cholesterol, Calc HDL Cholesterol Lipase 31 Procalcitonin TSH Urine Color Urine Appearance Urine pH Ur Specific [place] Urine Protein Urine Glucose (UA) Urine Ketones Urine Occult Blood Urine Nitrate Urine Bilirubin Urine Urobilinogen Ur Leukocyte Esterase Urine RBC Urine WBC Ur Squamous Epith Cells Ur Transition Epith Cell Urine Bacteria Ur Culture Indicated? Nasal Screen MRSA (PCR) SARS-CoV-2 (PCR) 04/13/22 04/13/22 04/13/22 19:15 19:44 22:49 WBC RBC Hgb Hct MCV MCH MCHC RDW Plt Count Neut % (Auto) Lymph % (Auto) [place] % (Auto) Eos % (Auto) Baso % (Auto) Neut # (Auto) Lymph # (Auto) [place] # (Auto) Eos # (Auto) Baso # (Auto) Sodium Potassium Chloride Carbon Dioxide BUN Creatinine Estimated GFR BUN/Creatinine Ratio Glucose Lactate Calcium Magnesium Total Bilirubin AST ALT Alkaline Phosphatase Total Creatine Kinase CK-MB (CK-2) CK-MB (CK-2) Rel Index Troponin I Total Protein Albumin Globulin Albumin/Globulin Ratio Triglycerides Cholesterol LDL Cholesterol, Calc HDL Cholesterol Lipase Procalcitonin 0.05 TSH Urine Color Urine Appearance Urine pH Ur Specific [place] Urine Protein Urine Glucose (UA) Urine Ketones Urine Occult Blood Urine Nitrate Urine Bilirubin Urine Urobilinogen Ur Leukocyte Esterase Urine RBC None seen Urine WBC 5-10/hpf H Ur Squamous Epith Cells 1-5 /hpf Ur Transition Epith Cell 0-1/hpf Urine Bacteria Many (>30) H Ur Culture Indicated? Specimen cultured Nasal Screen MRSA (PCR) SARS-CoV-2 (PCR) Negative 04/13/22 04/14/22 04/14/22 23:30 03:32 03:32 WBC 6.9 RBC 4.29 Hgb 12.2 Hct 35.7 L MCV 83.3 MCH 28.3 MCHC 34.0 RDW 13.3 Plt Count 241 Neut % (Auto) 61.4 Lymph % (Auto) 26.2 [place] % (Auto) 8.7 Eos % (Auto) 2.7 Baso % (Auto) 1.0 Neut # (Auto) 4300 Lymph # (Auto) 1800 [place] # (Auto) 600 Eos # (Auto) 200 Baso # (Auto) 100 Sodium 135 L Potassium 3.9 Chloride 107 Carbon Dioxide 22 BUN 12 Creatinine 0.62 Estimated GFR > 60 BUN/Creatinine Ratio 19.4 Glucose 137 H Lactate Calcium 7.8 L Magnesium Total Bilirubin AST ALT Alkaline Phosphatase Total Creatine Kinase CK-MB (CK-2) CK-MB (CK-2) Rel Index Troponin I Total Protein Albumin Globulin Albumin/Globulin Ratio Triglycerides 61 Cholesterol 189 LDL Cholesterol, Calc 127 H HDL Cholesterol 50 Lipase Procalcitonin TSH Urine Color Urine Appearance Urine pH Ur Specific [place] Urine Protein Urine Glucose (UA) Urine Ketones Urine Occult Blood Urine Nitrate Urine Bilirubin Urine Urobilinogen Ur Leukocyte Esterase Urine RBC Urine WBC Ur Squamous Epith Cells Ur Transition Epith Cell Urine Bacteria Ur Culture Indicated? Nasal Screen MRSA (PCR) Negative for mrsa SARS-CoV-2 (PCR) 04/14/22 04/14/22 03:32 03:40 WBC RBC Hgb Hct MCV MCH MCHC RDW Plt Count Neut % (Auto) Lymph % (Auto) [place] % (Auto) Eos % (Auto) Baso % (Auto) Neut # (Auto) Lymph # (Auto) [place] # (Auto) Eos # (Auto) Baso # (Auto) Sodium Potassium Chloride Carbon Dioxide BUN Creatinine Estimated GFR BUN/Creatinine Ratio Glucose Lactate Calcium Magnesium Total Bilirubin AST ALT Alkaline Phosphatase Total Creatine Kinase CK-MB (CK-2) CK-MB (CK-2) Rel Index Troponin I Total Protein Albumin Globulin Albumin/Globulin Ratio Triglycerides Cholesterol LDL Cholesterol, Calc HDL Cholesterol Lipase Procalcitonin TSH 2.65 Urine Color Yellow Urine Appearance Clear Urine pH 6.5 Ur Specific [place] <=1.005 Urine Protein Negative Urine Glucose (UA) Negative Urine Ketones Negative Urine Occult Blood Negative Urine Nitrate Negative Urine Bilirubin Negative Urine Urobilinogen 0.2 Ur Leukocyte Esterase 1+ H Urine RBC None seen Urine WBC 1-5/hpf Ur Squamous Epith Cells None seen Ur Transition Epith Cell Urine Bacteria None seen Ur Culture Indicated? Specimen cultured Nasal Screen MRSA (PCR) SARS-CoV-2 (PCR) [facility] Medical History (Updated 04/13/22 @ 23:24 by Leandra Mares DO) Diabetes Family History (Updated 04/14/22 @ 00:41 by Emmie Lozoya MD) Father Cancer COPD (chronic obstructive pulmonary disease) Mother No problems noted. Social History household members: spouse Smoking Status: Former smoker Assessment & Plan Assessment & Plan narrative: 1. Orthostatic hypotension, dizziness -continue IV hydration -MRI without evidence of CVA 2. Acute urinary tract infection -not having dysuria, not looking obviously septic, but probably should treat in light of nausea, vomiting and low BP -continue Rocephin -follow-up on urine culture sensitivities 3. Type 1 diabetes -blood sugars have been 130s to 160s here -continue management with patient's insulin pump 4. Borderline anemia -initial hemoglobin 11.7, repeat 12.2 after hydration -no old values available for comparison, can follow up with PCP 5. Acute hyponatremia likely from dehydration -initial sodium 130, repeat 135 which is improving -continue IV fluids DVT prophylaxis: Lovenox Patient improving and hopefully can discharge home tomorrow, Saturday. Time Spent With Patient Critical Care time: I spent a total of [] minutes of critical care time on this patient's care today; this time is exclusive of procedural time. Quality VTE Deep Vein Thrombosis/Pulmonary Embolism Present on Admission: No
--- NOTE | 2022-04-14 20:19 | PC.NURSE ---
pt declined PM Statin dose, states that she does not want to start taking them at this time.
[2022-04-15] VITALS: BP 92/55; PULSE 68; RESP 16; TEMP 37.5; O2SAT 97
[2022-04-15] MEDS: cefTRIAXone 1,000 MG in SODIUM CHLORIDE 0.9% 100 ML 200 MG IV (01:27)
[2022-04-15 04:00] VITALS: BP 84/54; PULSE 68; RESP 19; TEMP 37.3; O2SAT 94
[2022-04-15] MEDS: SODIUM CHLORIDE 0.45% 1,000 ML 100 ML IV (04:28)
[2022-04-15 08:26] VITALS: BP 104/59; PULSE 70; RESP 18; TEMP 36.4; O2SAT 96
[2022-04-15 08:54] VITALS: O2SAT 95
--- NOTE | 2022-04-15 09:07 | PC.NURSE ---
Addendum entered by Norma Gomez R.N. 04/15/22 10:24: pt discharged to home at this time all questions answered to her and her s satisfaction Original Note: PT AT EDGE OF BED EATING HER BREAKFAST WITHOUT COMPLAINTS OTHER THAN HAVING TO GET UP AND URINATE ALL NIGHT LONG-SALINE LOCKED AT THIS TIME AND PT STATES SHE'S HOPEFUL FOR DISCHARGE TO HOME THIS AM. LUNGS CLEAR NO EDEMA- AM BLD GLU 104 PER HER CONTINUOUS MONITOR
--- NOTE | 2022-04-15 17:35 | PM.DS.1 ---
History of Present Illness History of Present Illness Chief complaint: nausea/vomitting, low bp, type 1 diabetic Narrative: 71-year-old female with type 1 diabetes who presented to the emergency department with chief complaint of dizziness, nausea, vomiting, and pressure.? Patient reports she was in her usual state of health when she went to bed last night.? She had been eating and drinking normally.? [place] well.? She notes her alarm on her glucose monitor woke her up this morning and she had a low blood sugar of about 52.? She states she got up and drank a 7 up as well as had to fruit gummies.? Her blood sugar subsequently came up.? States around 20 minutes later she had emesis, but her blood sugars remained within normal range.? She states after getting up she ate breakfast.? Approximately 15-20 minutes later, she noted acute onset of feeling lightheaded/dizzy.? She states initially she felt as though she could pass out.? However, shortly thereafter she felt as though things were spinning.? She developed nausea.? She notes she did have some emesis several times throughout the day.? She reports she did feel sweaty/clammy with the episodes of emesis.? She had persistent vertiginous symptoms throughout the day as well.? She did have a low blood pressure down in the 80s at home.? She ultimately presented to the emergency department for further evaluation.? In the emergency department, she received 2 L of normal saline.? Blood pressures were subsequently in the 130 systolic.? Glucose was 114 in the emergency department as well.? Chest x-ray was within normal limits.? Noncontrast head CT revealed atrophy and chronic ischemic change without acute hemorrhage or mass effect.? CT angiogram of the head neck was performed without evidence of large vessel occlusion, aneurysm, or vascular malformation.? 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 Urine dip was performed which did reveal elevated white cells and bacteria. In the emergency department, patient received Zofran 4 mg, Protonix 40 mg, Rocephin 1 g IV.? Patient also received 25 mg of meclizine.? COVID testing was performed and negative.? Unfortunately, each time she sat up in the emergency department, she was too dizzy to be able to get up and ambulate.? Subsequently, admission was recommended. She denies any fevers, chills, abdominal pain, diarrhea, chest pain, shortness of breath.? She has been eating and drinking normally.? No headaches.? No URI symptoms.? No urinary symptoms. Discharge Providers Provider Date of admission: 04/13/22 22:54 Discharge Date: 04/15/22 Primary care physician: Yung Adan MD Consults: 04/14/22 00:41 Consult to Physical Therapy Evaluate & Treat Comment: Consider Billy-Hallpike maneuvers if MRI negative Physician Instructions: Evaluate and Treat Discharge provider: Shahriar Guzman MD Summary Hospital Course Discharge Diagnosis: 1. Orthostatic hypotension 2. Acute cystitis 3. Type 1 diabetes 4. Acute hyponatremia Hospital Course: Patient was admitted and provided IV fluids and Rocephin for the UTI. She did have documented orthostasis drops in blood pressure accompanied by lightheadedness. Symptoms gradually improved to where this morning she is completely symptom free with moving about the room. She will increase daily fluid intake at home. There was initial concern about TIA or stroke but CTA and brain MRI were both unremarkable. Status at Discharge Cognitive/behavioral status at discharge: oriented Functional status at discharge: independent ambulation Overall status at discharge: patient is back to baseline Time Spent with Patient Time spent: Less than 30 minutes Exam Vital Signs (past 8 hours): Oxygen Delivery Method Room Air Oxygen Flow Rate 0 Narrative Exam Narrative: General: Alert pleasant female in no acute distress Lungs are clear Heart sounds are regular Normal affect and speech Objective Labs Result Diagrams: 04/14/22 03:32 04/14/22 03:32 [facility] Medical History (Updated 04/13/22 @ 23:24 by Leandra Mares DO) Diabetes Family History (Updated 04/14/22 @ 00:41 by Emmie Lozoya MD) Father Cancer COPD (chronic obstructive pulmonary disease) Mother No problems noted. Social History household members: spouse Smoking Status: Former smoker Discharge Plan Discharge Plan Patient Disposition: Home Provider Discharge Comment: You were treated for UTI, dehydration and low blood pressure. Finish antibiotic as directed. Maintain good hydration, 6 to 8 cups, a day of mixed fluids. Discharge orders & Medications Prescriptions: New cephalexin 500 mg capsule 500 mg PO TID Qty: 9 0RF Continued insulin lispro 100 unit/mL solution See Rx Instructions .ROUTE .COMPLEX 0RF Label Comments: Insulin pump used with Dexcom for basal infusion rate adjustment. Rx Instructions: per endocrinology No Action (DME) Dexcom G6 Sensor Device MISCELLANEOUS 0RF (DME) Dexcom G6 Transmitter Device MISCELLANEOUS 0RF Follow up/Referrals: Yung Adan MD [Primary Care Provider] - Discharge Health Status Multidrug resistant organism: No MDRO Diet/Activity/Treatments Diet: Regular Discharge Data Primary Care Provider: Yung Adan Quality VTE Deep Vein Thrombosis/Pulmonary Embolism Present on Admission: No
== END 2022-04-15 10:20 | disposition home or self-care (01) | DRG 312 ==
LOC: ED 18:22 → ICU 23:24 → AC 04-15 05:20
PROVIDERS: Admitting Provider Family Medicine; Emergency Provider Emergency Medicine; PCP Family Medicine; Referring Provider Family Medicine; Visit Provider Family Medicine
DX: I95.1 Orthostatic hypotension (principal); N30.00 Acute cystitis without hematuria; E87.1 Hypo-osmolality and hyponatremia; E86.0 Dehydration; E10.649 Type 1 diabetes mellitus with hypoglycemia without coma; Z96.41 Presence of insulin pump (external) (internal); Z79.4 Long term (current) use of insulin; Z20.822 Contact with and (suspected) exposure to COVID-19; Z87.891 Personal history of nicotine dependence
CPT/HCPCS: 36415; 70450; 70496; 70498; 70551; 71045; 80048; 80053; 80061; 81001; 81003; 81015; 82550; 82553; 82962; 83605; 83690; 83735; 84145; 84443; 84484; 85025; 87040; 87077; 87086; 87186; 87635; 87797; 93005; 94760; 96361; 96365; 96375; 96376; 97162; 97530; 99285; C9803; C9113; J0696; J1650; J2405; J7050

== ENCOUNTER 2023-03-27 08:28 | Day surgery (SDC) | payer MEDICARE, BC, SELFPAY ==
[2022-04-14 00:12] VITALS: BMI 26.2
--- NOTE | 2023-03-26 18:07 | PM.PREOP ---
Pre-operative Note COVID-19 COVID-19 status: Not tested Criteria for continued procedure: Possibility delay results in more complex future surgery or treatment, Increased loss of function and Non-surgical alternatives not available or appropriate per current SOC Interval Note History & Physical reviewed/Exam performed by Physician: Yes Changes to H&P: No H&P completed within 30 days and has changed as indicated here:: Fasting glucose is 106. It was lower this morning and she corrected it. she has an insulin pump. She will adjust during surgery.
--- NOTE | 2023-03-26 18:08 | PM.OP.1 ---
Operative Date/Time/Diagnoses Date of procedure: 03/27/23 Time of procedure: 11:00 Procedure & Clinicians Procedure: Date of service: March 27, 2023 Preoperative diagnoses: 1. Bilateral upper lid dermatochalasis 2. Insulin-dependent diabetic using an insulin pump 3. Status post appendectomy Postoperative diagnoses: 1. Bilateral upper lid dermatochalasis Procedure: Bilateral upper blepharoplasty Surgeon: Danielle Jara MD Complications: none Specimen: None Blood loss: Less than 3 mL Anesthesia: Local infiltration with monitored standby. Anesthesiologist: Xiang Rowan M.D. Indications: Bilateral upper lids obstructing superior vision. Preoperative external photographs taken and loss of vision to within 1 mm of marginal light reflex. Functional surgery. Patient has 4+ dermatochalasis and feels that she has to lift her eyelids in order to see better. She denies sleep apnea. Her overhanging eyelids are causing her difficulty seeing to drive due to lack of peripheral vision and reading due to lack of central vision. Pre authorization for functional surgery was obtained. External photographs are reference during surgery. She is on an insulin pump and preoperative and intraoperative blood sugars are monitored. Procedure: In the preoperative holding area the amount skin and subcutaneous tissue to be removed was marked with indelible ink. The contours were carefully checked for symmetry and planned procedure discussed with the patient. The patient was taken to the operating room. IV sedation was given. Proparacaine drops were placed in both eyes for comfort. Local infiltration of anesthetic 2.5 cc into each upper lid, consisting of 1% xylocaine with epinephrine, normal saline and 1 cc hyluronidase was placed. This was then supplemented with full strength 2% xylocaine with epinephrine, 0.5% bupivacaine, and 1 cc hyalurondase. The face was prepped in an open manner. Attention was placed to the right upper lid. Using the previous mayes a number 15. Bard-Sergey blade was used to incise a skin muscle flap. The flap was lifted and removed. Cautery was applied as needed. Contouring of the muscle belly was also performed. Exploration of the nasal and preoperneurotic fat pads were performed removal and contouring with hemostat and scissors as well as cautery were performed. The lid was then closed with running and interrupted 6 0 Vicryl sutures. Same procedure was repeated for the left upper lid. The Betadine was removed. Maxitrol ointment was placed to suture line. She returned to recovery room in stable condition. Instructions for postoperative cold packs were reviewed. Danielle Jara MD. Same procedure as scheduled: Yes
[2023-03-27 09:05] VITALS: BP 101/65; PULSE 77; RESP 16; TEMP 36; O2SAT 100; BMI 25.0
[2023-03-27] MEDS: LACTATED RINGERS 1,000 ML 100 ML IV (09:15)
[2023-03-27] MEDS: ERYTHROMYCIN OPHTH 1 GM OINT 1 APPLIC EYE-BOTH (11:14)
[2023-03-27] MEDS: LIDOCAINE 2% W/EPI INJ 20 ML INJ (11:15)
[2023-03-27] MEDS: LIDOCAINE 1% W/EPI 20 ML INJ (11:15)
[2023-03-27] MEDS: PROPARACAINE 0.5% OPHTH SOL 2 DROPS EYE-BOTH (11:16)
[2023-03-27 12:07] VITALS: BP 101/64; PULSE 65; RESP 12; O2SAT 100
[2023-03-27 12:11] VITALS: BP 98/64; PULSE 72; RESP 16; TEMP 36.2; O2SAT 100
[2023-03-27 12:14] VITALS: BP 102/61; PULSE 68; RESP 14; O2SAT 100
[2023-03-27 12:18] VITALS: BP 109/63; PULSE 76; RESP 12; TEMP 36.2; O2SAT 100
== END 2023-03-27 12:40 | disposition home or self-care (01) ==
PROVIDERS: PCP Family Medicine; Referring Provider Ophthalmology; Visit Provider Ophthalmology
PROC: (CPT 15823; principal; 2023-03-27 09:45)
DX: H02.834 Dermatochalasis of left upper eyelid (principal); H02.831 Dermatochalasis of right upper eyelid; E11.9 Type 2 diabetes mellitus without complications; Z79.4 Long term (current) use of insulin; Z96.41 Presence of insulin pump (external) (internal)
CPT/HCPCS: 15823; J2704

== ENCOUNTER → 2024-01-31 13:16 | Outpatient (CLI) | payer MEDICARE, BC, SELFPAY ==
[2022-04-14 00:12] VITALS: BMI 26.2
--- NOTE | 2024-01-31 13:22 | DI.RAD.S_ITS ---
PROCEDURE: XR ABDOMEN MIN 2V INDICATIONS: Possible foreign body, needle Dexcom monitor needle TECHNIQUE: 2 views of the abdomen were acquired. COMPARISON: None. FINDINGS: Surgical changes and devices: Linear radiodensity projecting over left sacroiliac joint is seen. No definite radiopaque foreign body is seen in right abdomen. Bowel: No pneumoperitoneum. The bowel gas pattern is normal. Soft tissues: No masses; visualized solid organ contours appear normal in size. No suspicious abdominal calcifications. Bones: No suspicious bony abnormalities. IMPRESSION: Possible foreign body in left abdomen projecting over left sacroiliac joint. No definite radiopaque foreign body is seen in right abdomen. No gross free air. Dictated by: Domo Simpson M.D. on 01/31/2024 at 15:43 Approved by: Domo Simpson M.D. on 01/31/2024 at 15:51
--- NOTE | 2024-01-31 13:22 | DI.RAD.S_ITS ---
PROCEDURE: XR HUMERUS LT 2V INDICATIONS: Possible foreign body, needle Dexcom diabetic sugar monitor TECHNIQUE: 2 views of the humerus were acquired. COMPARISON: None. FINDINGS: Bones: No fractures or dislocations. No suspicious bony lesions. Soft tissues: No suspicious soft tissue calcifications. IMPRESSION: No radiopaque foreign body is seen in left upper arm soft tissue. No humeral fracture or dislocation. Dictated by: Domo Simpson M.D. on 01/31/2024 at 15:51 Approved by: Domo Simpson M.D. on 01/31/2024 at 15:52
== END ==
LOC: RAD 13:21
PROVIDERS: PCP Family Medicine; Referring Provider Nurse Practitioner Family; Visit Provider Nurse Practitioner Family
DX: M79.5 Residual foreign body in soft tissue (principal)
CPT/HCPCS: 73060; 74018

== ENCOUNTER 2024-06-03 10:11 | Inpatient (IN) | payer MEDICARE, BC, SELFPAY ==
[2022-04-14 00:12] VITALS: BMI 26.2
[2024-06-03] VITALS (23 sets, daily range): BP systolic 92–113; BP diastolic 52–67; PULSE 60–83; RESP 12–26; TEMP 36.1–36.9; O2SAT 94–100; BMI 22.9
--- NOTE | 2024-06-03 10:32 | EKG_ITS ---
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
[2024-06-03 10:41] LABS: Add Manual Diff / Slide Review NO; Basophils Absolute Auto 100 /uL (0-100); Basophils Percent Auto 0.9 % (0-2); Eosinophils Absolute Auto 100 /uL (0-450); Eosinophils Percent Auto 1.6 % (2-4); Hematocrit 36.8 % (36-46); Hemoglobin 12.4 g/dL (12.0-16.0); Lymphocytes Absolute Auto 2100 /uL (1100-4500); Lymphocytes Percent Auto 34.1 % (25-40); Mean Corpuscular HGB Conc 33.5 % (30-36); Mean Corpuscular Hemoglobin 28.2 PG (26-34); Monocytes Absolute Auto 800 /uL (0-900); Monocytes Percent Auto 12.5 % (3-14); Neutrophils Absolute Auto 3200 /uL (1500-7000); Neutrophils Percent Auto 50.9 % (50-75); Platelet Count 323 X10^3/uL (150-400); Red Blood Cell Count 4.39 X10^6/uL (4.0-5.2); Red Cell Distribution Width 12.8 % (11.6-14.8); White Blood Cell Count 6.3 X10^3/uL (4.5-11.0)
[2024-06-03 10:48] LABS: Alanine Aminotransferase 17 IU/L (<35); Albumin 4.4 g/dL (3.5-5.0); Alkaline Phosphatase 72 U/L (38-126); Aspartate Aminotransferase 26 IU/L (14-36); BUN Creatinine Ratio 15.6 (6-22); Bilirubin Total 0.9 mg/dL (0.2-1.3); Blood Urea Nitrogen 12 mg/dL (7-17); Calcium 8.9 mg/dL (8.4-10.2); Carbon Dioxide 21 mmol/L (22-32); Chloride 91 mmol/L (98-107); Estimated Glomerular Filt Rate > 60 mL/min (>60); Globulin 4.2 g/dL (1.7-4.1); Glucose 106 mg/dL (80-110); HEMOLYSIS < 15 (0-50); Lipase 51 U/L (23-300); Potassium 4.5 mmol/L (3.4-5.1); Total Protein 8.6 g/dL (6.3-8.2)
[2024-06-03 10:49] LABS: Sodium 118 mmol/L (137-145)
--- NOTE | 2024-06-03 11:06 | ED_ITS ---
HPI - Abdominal Pain General Chief Complaint: Abdominal Pain Stated Complaint: sent from [facility] abd pain Time Seen by Provider: 06/03/24 11:05 Source: patient Mode of arrival: Ambulatory History of Present Illness HPI narrative: Patient comes into the ED from home for evaluation of epigastric pain ongoing and persistent for the past 3 weeks, describes it as aching sensation nothing makes it better or worse, states that she has had associated nausea without vomiting. She states that the symptoms have persisted. Denies any headache visual disturbances chest pain shortness of breath fever chills or any other GI/ some time. No recent travel no known sick contacts, states she only takes insulin, blood sugars have been well controlled otherwise. No trauma no falls not on any blood thinners. patient states has only had an appendectomy when she was younger. patient does not see a health care facilities inspector or GI doctor Severity scale (1-10): 5 Related Data Home Medications Medication Instructions Recorded Confirmed blood-glucose sensor (Dexcom G6 04/14/22 01/28/24 Sensor device) blood-glucose transmitter (Dexcom 04/14/22 01/28/24 G6 Transmitter device) insulin lispro 100 unit/mL See Rx Instructions .Route .COMPLEX 04/14/22 01/28/24 subcutaneous solution Allergies Allergy/AdvReac Type Severity Reaction Status Date / Time No Known Drug Allergies Allergy Verified 06/03/24 10:14 Review of Systems Review of Systems ROS Unobtainable: All systems reviewed & are unremarkable except as noted in HPI and below Neurologic Comments: NIH of 0 Psychiatric Psychiatric: Denies visual hallucinations, Denies hallucinations, Denies homicidal ideation and Denies suicidal ideation Patient History Medical History Diabetes Family History (Updated 04/14/22 @ 00:41 by Emmie Lozoya MD) Father Cancer COPD (chronic obstructive pulmonary disease) Mother No problems noted. Social History household members: spouse Smoking Status: Former smoker alcohol intake: current Smoking Status: Former smoker tobacco type: cigarettes alcohol intake frequency: holidays/special occasions only Substance Use Type: does not use Exam Initial Vital Signs Initial Vital Signs: Vital Signs Temperature 98.4 F 06/03/24 10:14 Pulse Rate 82 06/03/24 10:14 Respiratory Rate 14 06/03/24 10:14 Blood Pressure 98/67 06/03/24 10:14 Pulse Oximetry 95 06/03/24 10:14 Oxygen Delivery Method Room Air 06/03/24 10:14 Const General: cooperative, healthy appearing, comfortable, well developed, No acute distress and No in distress [facility] Head: normal to inspection, normocephalic and atraumatic Ears: hearing grossly normal bilaterally and external ears normal Nose: external nose normal and nares normal Eyes General: No appearance normal, both eyes and all related structures Visual Concepcion: visual concepcion abnormal by confrontation Alignment and Position: abnormal alignment and abnormal position Eyelids: abnormal eyelids Conjunctivae: abnormal conjunctivae Sclera: abnormal sclerae Cornea: abnormal corneas Pupils: pupils not ERRL EOM: EOM not intact bilaterally, EOM normal and no movement deficit Neck Neck: No normal visual inspection and No full ROM Chest Chest: No normal inspection of the chest, No normal palpation of entire chest wall, No abnormal inspection of the chest and No crepitus Resp Effort & Inspection: normal respiratory effort, able to speak in complete sentences, normal respiratory pattern, no audible wheezes, no cough, respiratory effort not decreased, no grunting, not labored and no respiratory distress Cardio Rate: regular rate Rhythm: regular rhythm Heart Sounds: no click, no gallops, no murmurs and no rubs GI Inspection: normal to inspection Palpation: soft and other Other: minor tenderness to palpation diffusely worse in the epigastric region Skin General: no rashes or lesions noted Lesions: no lesions Rashes: no rashes Neuro General: patient alert, patient awake, patient oriented x3, moves all extremities and CN's II-XI intact bilaterally Speech: speech normal Course Course Course Narrative: Reviewed patient's previous urine culture sensitivities on 04/13/2022, as follows: Urine Culture Final 04/15/22-1054 Organism 1 Escherichia coli [place] Count >100,000 CFU/ml 1. Escherichia coli M.I.C. RX --------- --- * Amoxicillin/Clavulanate 4 S * Ampicillin 8 S * Ampicillin/Sulbactam <=2 S * Cefazolin <=4 S * Cefepime <=1 S * Ceftazidime <=1 S * Ceftriaxone <=1 S * Ciprofloxacin >=4 R * Ertapenem <=0.5 S * Gentamicin <=1 S * Imipenem <=0.25 S * Levofloxacin >=8 R * Nitrofurantoin 32 S * Tobramycin <=1 S * Trimethoprim/Sulfamethoxazole <=20 S * Piperacillin/Tazobactam <=4 S will give patient dose of IV antibiotics given urinary tract infection, based off previous urine culture sensitivities will give her a 1g of Rocephin Chest x-ray reviewed and interpreted by me, there are no signs of pneumothorax or consolidations concerning for pneumonia, nonacute patient re-evaluated at 12:17 p.m. patient updated in regards to need for admission given hyponatremic at 118, also is complaining that she has been feeling more fatigued than normal due to having to care for her over the past few weeks due to the fact that he has had significant amount of health problems. Repeat abdominal exam is soft nontender non peritoneal nature, patient understands agrees with plan of admission. Discussed case with Nephrology, Dr. Villegas, agrees with current plan of admission given patient with sodium of 118. Recommends repeat BMP in 2 hours, with subsequent q.4 sodium. Would recommend adding morning cortisol, states that if patient does become symptomatic would recommend hypertonic saline 70 cc over 15 minutes, if patient ceases would recommend hypertonic 100 cc over 10 minute. Call placed to hospitalist for admission (Dr. Garcia) Orders Ordered: ED Orders 06/03/24 10:17 EKG-12 Lead Stat 06/03/24 10:25 Complete Blood Count AUTO DIFF Stat Comprehensive Metabolic Panel Stat Lipase Stat MAG [Magnesium] Stat TSH [Thyroid Stimulating Hormone] Stat Uric Acid Stat 06/03/24 11:00 Sodium Urine Random Stat Urinalysis and Microscopic Stat Urine Culture Stat 06/03/24 11:16 CXR [XR chest 1V] Stat 06/03/24 11:17 CT abdomen pelvis w con Stat Ondansetron HCl (Ondansetron 4 Mg/2 Ml Inj) 4 mg IV NOW PRN PRN Reason: Nausea And Vomiting Ondansetron HCl (Ondansetron 4 Mg Odt) 4 mg PO NOW PRN PRN Reason: Nausea And Vomiting Discontinued Medications Sodium Chloride (Normal Saline 0.9%) 500 mls @ 1,000 mls/hr IV BOLUS ONE Stop: 06/03/24 11:48 Last Infusion: 06/03/24 12:15 Dose: Infused Ceftriaxone Sodium 1,000 mg/ (Sodium Chloride) 100 mls @ 200 mls/hr IV NOW ONE Stop: 06/03/24 11:49 Last Titration: 06/03/24 13:05 Dose: 0 mls/hr Vital Signs Vital signs: Vital Signs - 8 hr 06/03/24 10:14 06/03/24 11:04 06/03/24 11:30 Temperature 98.4 F Pulse Rate 82 Respiratory Rate 14 Blood Pressure 98/67 100/63 102/56 L Pulse Oximetry 95 Oxygen Delivery Method Room Air 06/03/24 11:30 06/03/24 12:00 06/03/24 12:30 Temperature Pulse Rate 75 66 67 Respiratory Rate Blood Pressure Pulse Oximetry 100 100 100 Oxygen Delivery Method 06/03/24 13:00 Temperature Pulse Rate 72 Respiratory Rate 26 H Blood Pressure Pulse Oximetry 99 Oxygen Delivery Method MDM - Abdominal Pain Differential Diagnosis Differential diagnosis: Likely abdominal pain, constipation, diverticulitis, gastroenteritis, pancreatitis and small bowel obstruction Medical Records Attestation: I reviewed the patient's medical records. Lab Data Attestation: I reviewed the patient's lab results. 06/03/24 10:25 06/03/24 10:25 Labs: Lab Results 06/03/24 06/03/24 Range/Units 10:25 11:00 WBC 6.3 (4.5-11.0) X10^3/uL RBC 4.39 (4.0-5.2) X10^6/uL Hgb 12.4 (12.0-16.0) g/dL Hct 36.8 (36-46) % MCV 84.0 (80-100) fL MCH 28.2 (26-34) PG MCHC 33.5 (30-36) % RDW 12.8 (11.6-14.8) % Plt Count 323 (150-400) X10^3/uL Neut % (Auto) 50.9 (50-75) % Lymph % (Auto) 34.1 (25-40) % [place] % (Auto) 12.5 (3-14) % Eos % (Auto) 1.6 L (2-4) % Baso % (Auto) 0.9 (0-2) % Neut # (Auto) 3200 (9346-5870) /uL Lymph # (Auto) 2100 (7252-1868) /uL [place] # (Auto) 800 (0-900) /uL Eos # (Auto) 100 (0-450) /uL Baso # (Auto) 100 (0-100) /uL Sodium 118 L* (137-145) mmol/L Potassium 4.5 (3.4-5.1) mmol/L Chloride 91 L (98-107) mmol/L Carbon Dioxide 21 L (22-32) mmol/L BUN 12 (7-17) mg/dL Creatinine 0.77 (0.52-1.04) mg/dL Estimated GFR > 60 (>60) mL/min BUN/Creatinine Ratio 15.6 (6-22) Glucose 106 (80-110) mg/dL Uric Acid 3.4 (2.5-6.2) mg/dL Calcium 8.9 (8.4-10.2) mg/dL Magnesium 1.8 (1.6-2.3) mg/dL Total Bilirubin 0.9 (0.2-1.3) mg/dL AST 26 (14-36) IU/L ALT 17 (<35) IU/L Alkaline Phosphatase 72 (38-126) U/L Total Protein 8.6 H (6.3-8.2) g/dL Albumin 4.4 (3.5-5.0) g/dL Globulin 4.2 H (1.7-4.1) g/dL Albumin/Globulin Ratio 1.0 (1.0-2.8) Lipase 51 (23-300) U/L TSH 3.26 (0.47-4.68) uIU/mL Urine Color Yellow Urine Appearance Sl cloudy Urine pH 6.0 (4.5-8.0) Ur Specific [place] 1.020 (1.000-1.035) Urine Protein Negative (Negative) Urine Glucose (UA) Negative (Negative) g/dL Urine Ketones 1+ H (NEGATIVE) Urine Occult Blood Negative (Negative) Urine Nitrate Negative (Negative) Urine Bilirubin Negative (NEGATIVE) Urine Urobilinogen 1.0 (0.2) E.U./dL Ur Leukocyte Esterase 2+ H (NEGATIVE) Urine RBC 1-5/hpf (0-5/HPF) Urine WBC 5-10/hpf H (0-5/HPF) Ur Squamous Epith Cells 1-5 /hpf (0-5/HPF) Urine Bacteria Many (>30) H (None) Ur Culture Indicated? Specimen cultured Vol Urine Centrifuged 10ml (spun) Ur Random Sodium 168 H (30-90) mmol/L Point of care testing: Point of Care Testing Glucose POC 77 Imaging Data Chest x-ray: Radiologist's Impression: IMPRESSION: No acute cardiopulmonary pathology. CT scan - abdomen/pelvis: Radiologist's Impression: IMPRESSION: 1. Diffuse gastric wall thickening and edema concerning for gastritis. No bowel obstruction. No other area of abnormal bowel wall thickening. No free fluid or free air. 2. Age indeterminate anterior wedge compression deformity at L2 level with up to 50% loss of L2 vertebral body height. Degenerative disc disease throughout lower thoracic and lumbar spine. 3. Well-circumscribed hypodense areas are seen scattered in liver parenchyma likely represent hepatic cysts. ECG Data Attestation: I personally reviewed and interpreted this ECG as follows: Interpretation: EKG interpreted by ED physician, sinuses 79 beats per minute, QTC 438, normal axis, nonspecific ST changes, no STEMI MDM Narrative Medical decision making narrative: Patient is a 73-year-old female with history of type 1 diabetes came in complaining of epigastric pain nausea ongoing or persistent for the past 3 weeks. Has had decreased p.o. intake secondary to her symptoms. Patient with lab work consistent with hyponatremia at 118. Patient currently asymptomatic, no signs of active seizure. CT scan showing gastritis, EKG nonischemic in nature. Given patient with sodium in the 118 patient will require admission for repeat lab work and sodium replenishment. Discussion with health care facilities inspector was performed with Dr. Villegas, who agrees with admission, q.4 sodium checks and morning cortisol. Discussed case with hospitalist Dr. Galdamez accepts admission. Discharge Plan Departure Patient Disposition: Admitted As Inpatient Clinical Impression: Acute hyponatremia Gastritis Qualifiers: Gastritis type: unspecified gastritis Chronicity: acute Gastritis bleeding: w ithout bleeding Qualified Code(s): K29.00 - Acute gastritis without bleeding Urinary tract infection Qualifiers: Urinary tract infection type: site unspecified Hematuria presence: without hematuria Qualified Code(s): N39.0 - Urinary tract infection, site not specified Prescriptions: No Action (DME) Dexcom G6 Sensor Device MISCELLANEOUS (DME) Dexcom G6 Transmitter Device MISCELLANEOUS insulin lispro 100 unit/mL solution See Rx Instructions .ROUTE .COMPLEX Patient Comments: Insulin pump used with Dexcom for basal infusion rate adjustment. Rx Instructions: per endocrinology Referrals: Yung Adan MD [Primary Care Provider] -
[2024-06-03 11:15] LABS: Appearance Urine UA SL CLOUDY; Bilirubin Urine UA NEGATIVE (NEGATIVE); Color Urine UA YELLOW; Glucose Urine UA NEGATIVE (Negative); Ketones Urine UA 1+ (NEGATIVE); Leukocyte Esterase Urine UA 2+ (NEGATIVE); Nitrite Urine UA NEGATIVE (Negative); Occult Blood Urine UA NEGATIVE (Negative); Protein Urine UA NEGATIVE (Negative)
--- NOTE | 2024-06-03 11:16 | DI.RAD.S_ITS ---
PROCEDURE: XR CHEST 1V INDICATIONS: epigastric pain TECHNIQUE: One view of the chest was acquired. COMPARISON: [facility], CR, XR CHEST 1V, 04/13/2022, 18:30. FINDINGS: Surgical changes and devices: None. Lungs and pleura: Lungs are clear. No pleural effusions or pneumothorax. Mediastinum: Mediastinal contours appear normal. Heart size is normal. Bones and chest wall: No suspicious bony lesions. Overlying soft tissues appear unremarkable. IMPRESSION: No acute cardiopulmonary pathology. Dictated by: Domo Simpson M.D. on 06/03/2024 at 12:09 Approved by: Domo Simpson M.D. on 06/03/2024 at 12:09
--- NOTE | 2024-06-03 11:17 | DI.CT.S_ITS ---
PROCEDURE: CT ABDOMEN PELVIS W CON INDICATIONS: abd pain, nausea, vomiting TECHNIQUE: After the administration of intravenous contrast, axial sections acquired from the lung bases to the pubic symphysis. Coronal and sagittal reformats were performed. For radiation dose reduction, the following was used: automated exposure control, adjustment of mA and/or kV according to patient size. COMPARISON: [facility], CR, XR ABDOMEN MIN 2V, 01/31/2024, 13:59. FINDINGS: Image quality: Diagnostic. Lower Chest: No significant findings. ABDOMEN: Liver: 8 x 6 mm hypodensity involving left hepatic lobe lateral segment series 2, image 24 and may represent a small cyst. Tiny hypodensity involving inferior aspect of left hepatic lobe is also seen measures 3 mm in size and is too small to characterize series 2, image 28. Likely cyst in inferior right hepatic lobe is also seen adjacent to gallbladder fossa measures 8 mm in size. Gallbladder: No radiopaque gallstones or wall thickening. Biliary ducts: No biliary dilation. Pancreas: No ductal dilation. Spleen: Size is within normal limits. Adrenal Glands: No adrenal nodules. Kidneys and Ureters: No hydronephrosis. No solid mass. No complex renal cystic lesion which requires follow up. Stomach and Bowel: There is no bowel obstruction. Diffuse gastric wall thickening i and edema is seen concerning for gastritis. There is no gross small bowel or colon wall thickening. No abscess collection. Peritoneum: No abnormal intraperitoneal fluid. No free air. Ventral Wall: No significant ventral hernia. Abdominal Nodes: No retroperitoneal or mesenteric adenopathy by size criteria. Vessels: Aorta and inferior vena cava are normal in size. PELVIS: Pelvic Organs: Unremarkable. Bladder: No bladder wall thickening, accounting for underdistention. Pelvic Nodes: No enlarged lymph nodes. Miscellaneous: No inguinal hernias are seen. Bones: No aggressive osseous abnormality. Age indeterminate anterior wedge compression deformity involving L2 vertebral body is seen with up to 50% loss of L2 vertebral body height anteriorly. Degenerative endplate changes throughout lower thoracic spine and lumbar spine is seen. IMPRESSION: 1. Diffuse gastric wall thickening and edema concerning for gastritis. No bowel obstruction. No other area of abnormal bowel wall thickening. No free fluid or free air. 2. Age indeterminate anterior wedge compression deformity at L2 level with up to 50% loss of L2 vertebral body height. Degenerative disc disease throughout lower thoracic and lumbar spine. 3. Well-circumscribed hypodense areas are seen scattered in liver parenchyma likely represent hepatic cysts. Dictated by: Domo Simpson M.D. on 06/03/2024 at 12:10 Approved by: Domo Simpson M.D. on 06/03/2024 at 12:14
[2024-06-03 11:20] LABS: Urine Volume 10mL (spun); WBC Urine 5-10/HPF (0-5/HPF)
[2024-06-03 11:21] LABS: Bacteria Urine Many (>30); Culture Indicated Urine Specimen Cultured; RBC Urine 1-5/HPF (0-5/HPF); Squamous Epithelial Cell Urine 1-5 /HPF (0-5/HPF)
[2024-06-03] MEDS: SODIUM CHLORIDE 0.9% 500 ML 1000 ML IV (11:36)
[2024-06-03 11:54] LABS: Magnesium 1.8 mg/dL (1.6-2.3); Uric Acid 3.4 mg/dL (2.5-6.2)
[2024-06-03 12:07] LABS: Sodium Urine Random 168 mmol/L (30-90)
[2024-06-03] MEDS: cefTRIAXone 1,000 MG in SODIUM CHLORIDE 0.9% 100 ML 200 MG IV (12:17)
[2024-06-03 12:44] LABS: Thyroid Stimulating Hormone 3.26 uIU/mL (0.47-4.68)
--- NOTE | 2024-06-03 12:50 | PC.NURSE ---
patient reported feeling dizzy and her glucometer showed her blood sugar was 74, TETE raquel checked again and she was 77. Provider made aware and he approved her to have food/ drink. This RN brought the patient some juice, patient refused any food
--- NOTE | 2024-06-03 14:41 | PM.HP.1 ---
History of Present Illness History of Present Illness Date Patient Seen: 06/03/24 Chief complaint: sent from [facility] abd pain Narrative: From ED rpovider: Patient comes into the ED from home for evaluation of epigastric pain ongoing and persistent for the past 3 weeks, describes it as aching sensation nothing makes it better or worse, states that she has had associated nausea without vomiting. She states that the symptoms have persisted. Denies any headache visual disturbances chest pain shortness of breath fever chills or any other GI/ some time. No recent travel no known sick contacts, states she only takes insulin, blood sugars have been well controlled otherwise. No trauma no falls not on any blood thinners. patient states has only had an appendectomy when she was younger. patient does not see a technical staff engineer or GI doctor Severity scale (1-10): 5 Additional information: She presented a week is in epic pain ongoing for 3 weeks. She has been under a lot of stress with her and some medical issues he was going through. She was found to have hyponatremia, sodium was 118 and she was started on saline. She did correct up to 122 so we will hold saline for the next 4 hours and monitor. She denies history of ulcer, vomiting, hematemesis, melena, or blood per rectum. She denies any dysuria or hematuria but does have a history of occult UTI in the past. She was started on antibiotics in the emergency department. She was no history of hyponatremia. She has had very poor oral intake for the last several days. She denies fevers, or chills. [facility] Medical History Diabetes Family History Father Cancer COPD (chronic obstructive pulmonary disease) Mother No problems noted. Social History household members: spouse Smoking Status: Former smoker alcohol intake: current Meds Home Medications and Allergies Home Medications Medication Instructions Recorded Confirmed Type blood-glucose sensor (Dexcom G6 04/14/22 06/03/24 History Sensor device) blood-glucose transmitter (Dexcom 04/14/22 06/03/24 History G6 Transmitter device) insulin lispro 100 unit/mL See Rx Instructions .Route .COMPLEX 04/14/22 06/03/24 History subcutaneous solution Allergies Allergy/AdvReac Type Severity Reaction Status Date / Time No Known Drug Allergies Allergy Verified 06/03/24 10:14 Review of Systems Review of Systems Narrative: All else reviewed and otherwise unremarkable except as noted in the history and physical. Exam Vital Signs (past 8 hours): - 06/03/24 10:14 06/03/24 11:04 06/03/24 11:30 Temperature 98.4 F Pulse Rate 82 Respiratory Rate 14 Blood Pressure 98/67 100/63 102/56 L Pulse Oximetry 95 Oxygen Delivery Method Room Air 06/03/24 11:30 06/03/24 12:00 06/03/24 12:30 Temperature Pulse Rate 75 66 67 Respiratory Rate Blood Pressure Pulse Oximetry 100 100 100 Oxygen Delivery Method 06/03/24 13:00 06/03/24 13:29 06/03/24 13:29 Temperature Pulse Rate 72 64 Respiratory Rate 26 H 23 Blood Pressure 113/52 L Pulse Oximetry 99 100 Oxygen Delivery Method 06/03/24 13:30 06/03/24 13:30 06/03/24 14:00 Temperature Pulse Rate 60 Respiratory Rate 14 Blood Pressure 101/52 L 112/60 Pulse Oximetry 99 Oxygen Delivery Method 06/03/24 14:00 Temperature Pulse Rate 69 Respiratory Rate 17 Blood Pressure Pulse Oximetry 98 Oxygen Delivery Method Oxygen Delivery Method Room Air Narrative Exam Narrative: NAD, alert and oriented, fluent speech, calm. Normocephalic skull, EOMI, anicteric sclera, symmetric pupils. Oropharynx unremarkable, no droop. Neck supple, midline trachea, no adenopathy. Lungs clear, normal rate and effort. Heart regular, no murmur gallop or rub. Abdomen is soft, non distended and non tender. Extremities are free of edema. Skin is free of rash or lesions. Joints are not swollen or deformed. Judgment appears to be normal. Objective ECG Impression: Normal sinus rhythm Imaging CT scan - abdomen: Radiologist's impression: CT brain: No acute intracranial pathology. CTA: No significant intracranial arterial abnormality is seen. No high-grade stenosis, occlusion, aneurysm, or dissection. No significant abnormality is seen within the arteries of the neck. No evidence for dissection. If there is persistent or high clinical suspicion for acute cerebrovascular ischemia/stroke, more sensitive evaluation with brain MRI can be considered. CXR: Diffuse interstitial prominence involving the left hemithorax with patchy opacities of the left perihilar and left lung base. Findings may represent an infectious or inflammatory process. Asymmetric pulmonary edema may have a similar appearance if clinically appropriate. Labs 06/03/24 10:25 06/03/24 15:00 Labs: Laboratory Results - last 24 hr 06/03/24 06/03/24 10:25 11:00 WBC 6.3 RBC 4.39 Hgb 12.4 Hct 36.8 MCV 84.0 MCH 28.2 MCHC 33.5 RDW 12.8 Plt Count 323 Neut % (Auto) 50.9 Lymph % (Auto) 34.1 [place] % (Auto) 12.5 Eos % (Auto) 1.6 L Baso % (Auto) 0.9 Neut # (Auto) 3200 Lymph # (Auto) 2100 [place] # (Auto) 800 Eos # (Auto) 100 Baso # (Auto) 100 Sodium 118 L* Potassium 4.5 Chloride 91 L Carbon Dioxide 21 L BUN 12 Creatinine 0.77 Estimated GFR > 60 BUN/Creatinine Ratio 15.6 Glucose 106 Uric Acid 3.4 Calcium 8.9 Magnesium 1.8 Total Bilirubin 0.9 AST 26 ALT 17 Alkaline Phosphatase 72 Total Protein 8.6 H Albumin 4.4 Globulin 4.2 H Albumin/Globulin Ratio 1.0 Lipase 51 TSH 3.26 Urine Color Yellow Urine Appearance Sl cloudy Urine pH 6.0 Ur Specific [place] 1.020 Urine Protein Negative Urine Glucose (UA) Negative Urine Ketones 1+ H Urine Occult Blood Negative Urine Nitrate Negative Urine Bilirubin Negative Urine Urobilinogen 1.0 Ur Leukocyte Esterase 2+ H Urine RBC 1-5/hpf Urine WBC 5-10/hpf H Ur Squamous Epith Cells 1-5 /hpf Urine Bacteria Many (>30) H Ur Culture Indicated? Specimen cultured Vol Urine Centrifuged 10ml (spun) Ur Random Sodium 168 H Assessment & Plan Assessment & Plan narrative: 1. Hyponatremia, present on admission and active. 2. UTI, present on admission and active. 3. Epigastric pain with gastritis on CT, present on admission and active. 4. DM 2, present on admission and active. Insulin-dependent. Plan: -BNP q.4 hours. -normal saline at 50 mL/hour. -random urine sodium. -continue lispro and Lantus with her baseline dosing. -ceftriaxone IV Q 24 hours. -Protonix 40 mg IV b.i.d.. Possible need for endoscopy pending clinical course. PT and OT consults on 05/30 5:00 a.m.. She was admitted inpatient status, expect 2 nights of hospital medical care necessity. DA is June 05. Full resuscitation. Time-Based Coding :: 35 min spent with patient and on the chart (including review of chart, obtaining history, exam, reviewing outside data, placing orders, documenting exam and treatment plan, and counseling patient) on 06/03. Quality MIPS - Admit I confirm the patient?s Advance Care Plan is present, Code status is documented, Surrogate decision maker is in patient?s record [If Yes, STOP here]: Yes MIPS - Meds 'Current medications' to include all prescriptions, [id number] products, herbals, cannabis/cannabidiol products, and vitamin/mineral/dietary (nutritional) supplements. I have utilized all available resources to obtain, update, or review the patient?s current medications. [If Yes, STOP here]: Yes
[2024-06-03] MEDS: SODIUM CHLORIDE 0.9% 1,000 ML 50 ML IV (15:13)
[2024-06-03 15:16] LABS: BUN Creatinine Ratio 14.1 (6-22); Blood Urea Nitrogen 10 mg/dL (7-17); Calcium 8.4 mg/dL (8.4-10.2); Carbon Dioxide 21 mmol/L (22-32); Chloride 93 mmol/L (98-107); Estimated Glomerular Filt Rate > 60 mL/min (>60); Glucose 126 mg/dL (80-110); HEMOLYSIS < 15 (0-50); Potassium 4.1 mmol/L (3.4-5.1); Sodium 122 mmol/L (137-145)
[2024-06-03 17:02] LABS: Sodium Urine Random 90 mmol/L (30-90)
[2024-06-03 19:00] LABS: BUN Creatinine Ratio 12.9 (6-22); Blood Urea Nitrogen 9 mg/dL (7-17); Calcium 8.3 mg/dL (8.4-10.2); Carbon Dioxide 19 mmol/L (22-32); Chloride 93 mmol/L (98-107); Estimated Glomerular Filt Rate > 60 mL/min (>60); Glucose 136 mg/dL (80-110); HEMOLYSIS < 15 (0-50); Potassium 3.9 mmol/L (3.4-5.1); Sodium 120 mmol/L (137-145)
[2024-06-03] MEDS: PANTOPRAZOLE 40 MG VIAL IV ×2 (19:12→21:37)
[2024-06-03] MEDS: HEPARIN 5,000 UNIT/ML VIAL 5000 UNIT SUBCUT (21:37)
[2024-06-03] MEDS: SENNOSIDES 8.6 MG TABLET 17.2 MG PO (21:37)
[2024-06-03 22:54] LABS: BUN Creatinine Ratio 15.4 (6-22); Blood Urea Nitrogen 10 mg/dL (7-17); Calcium 8.4 mg/dL (8.4-10.2); Carbon Dioxide 21 mmol/L (22-32); Chloride 94 mmol/L (98-107); Estimated Glomerular Filt Rate > 60 mL/min (>60); Glucose 146 mg/dL (80-110); HEMOLYSIS < 15 (0-50); Potassium 4.3 mmol/L (3.4-5.1)
[2024-06-03 23:08] LABS: Sodium 119 mmol/L (137-145)
[2024-06-04] MEDS: SODIUM CHLORIDE 1,000 MG TABLET 1000 MG PO (01:45)
[2024-06-04 06:00] VITALS: BP 96/53; PULSE 86; RESP 20; TEMP 36.5; O2SAT 97
[2024-06-04] MEDS: SODIUM CHLORIDE 0.9% 1,000 ML 50 ML IV ×2 (06:39→22:35)
[2024-06-04 06:51] LABS: Add Manual Diff / Slide Review NO; Basophils Absolute Auto 0 /uL (0-100); Basophils Percent Auto 0.8 % (0-2); Eosinophils Absolute Auto 100 /uL (0-450); Eosinophils Percent Auto 1.8 % (2-4); Hematocrit 35.5 % (36-46); Hemoglobin 12.1 g/dL (12.0-16.0); Lymphocytes Absolute Auto 1800 /uL (1100-4500); Lymphocytes Percent Auto 31.4 % (25-40); Mean Corpuscular Hemoglobin 28.2 PG (26-34); Monocytes Absolute Auto 600 /uL (0-900); Monocytes Percent Auto 11.4 % (3-14); Neutrophils Absolute Auto 3100 /uL (1500-7000); Neutrophils Percent Auto 54.6 % (50-75); Platelet Count 277 X10^3/uL (150-400); Red Blood Cell Count 4.28 X10^6/uL (4.0-5.2); Red Cell Distribution Width 12.5 % (11.6-14.8); White Blood Cell Count 5.6 X10^3/uL (4.5-11.0)
--- NOTE | 2024-06-04 07:31 | P.PN_ITS ---
Subjective Subjective Interval history: She was admitted with hyponatremia and urinary tract infection as well as epigastric pain and dyspepsia. She initially corrected from 118-122 over a very short period of time yesterday and her fluids were held. She then drifted back to 119 was given a g of oral sodium chloride by the night doctor restarted on saline. S: She denies confusion. No dysuria. She does have ongoing epigastric pain which is described as constant and aching. She was started on a PPI. She has been in her under a lot of stress with her 's medical illness recently. She has been eating, but less than usual. No nausea or vomiting, no melena. Exam Vital Signs (past 8 hours): - 06/04/24 06:00 Temperature 97.7 F Pulse Rate 86 Respiratory Rate 20 Blood Pressure 96/53 L Pulse Oximetry 97 Oxygen Flow Rate 0 Oxygen Delivery Method Room Air Oxygen Flow Rate 0 Narrative Exam Narrative: NAD, alert and oriented. Fluent speech. Lungs are clear, normal rate and effort. Heart is regular, no murmur gallop or rub. Abdomen is soft, non distended. There is minimal epigastric tenderness to palpation. Extremities are free of edema. Objective Labs 06/04/24 06:20 06/03/24 22:36 Labs: Laboratory Results - last 24 hr 06/03/24 06/03/24 06/03/24 10:25 11:00 15:00 WBC 6.3 RBC 4.39 Hgb 12.4 Hct 36.8 MCV 84.0 MCH 28.2 MCHC 33.5 RDW 12.8 Plt Count 323 Neut % (Auto) 50.9 Lymph % (Auto) 34.1 [place] % (Auto) 12.5 Eos % (Auto) 1.6 L Baso % (Auto) 0.9 Neut # (Auto) 3200 Lymph # (Auto) 2100 [place] # (Auto) 800 Eos # (Auto) 100 Baso # (Auto) 100 Sodium 118 L* 122 L Potassium 4.5 4.1 Chloride 91 L 93 L Carbon Dioxide 21 L 21 L BUN 12 10 Creatinine 0.77 0.71 Estimated GFR > 60 > 60 BUN/Creatinine Ratio 15.6 14.1 Glucose 106 126 H Uric Acid 3.4 Calcium 8.9 8.4 Magnesium 1.8 Total Bilirubin 0.9 AST 26 ALT 17 Alkaline Phosphatase 72 Total Protein 8.6 H Albumin 4.4 Globulin 4.2 H Albumin/Globulin Ratio 1.0 Lipase 51 TSH 3.26 Urine Color Yellow Urine Appearance Sl cloudy Urine pH 6.0 Ur Specific [place] 1.020 Urine Protein Negative Urine Glucose (UA) Negative Urine Ketones 1+ H Urine Occult Blood Negative Urine Nitrate Negative Urine Bilirubin Negative Urine Urobilinogen 1.0 Ur Leukocyte Esterase 2+ H Urine RBC 1-5/hpf Urine WBC 5-10/hpf H Ur Squamous Epith Cells 1-5 /hpf Urine Bacteria Many (>30) H Ur Culture Indicated? Specimen cultured Vol Urine Centrifuged 10ml (spun) Ur Random Sodium 168 H 06/03/24 06/03/24 06/03/24 16:25 18:30 22:36 WBC RBC Hgb Hct MCV MCH MCHC RDW Plt Count Neut % (Auto) Lymph % (Auto) [place] % (Auto) Eos % (Auto) Baso % (Auto) Neut # (Auto) Lymph # (Auto) [place] # (Auto) Eos # (Auto) Baso # (Auto) Sodium 120 L 119 L* Potassium 3.9 4.3 Chloride 93 L 94 L Carbon Dioxide 19 L 21 L BUN 9 10 Creatinine 0.70 0.65 Estimated GFR > 60 > 60 BUN/Creatinine Ratio 12.9 15.4 Glucose 136 H 146 H Uric Acid Calcium 8.3 L 8.4 Magnesium Total Bilirubin AST ALT Alkaline Phosphatase Total Protein Albumin Globulin Albumin/Globulin Ratio Lipase TSH Urine Color Urine Appearance Urine pH Ur Specific [place] Urine Protein Urine Glucose (UA) Urine Ketones Urine Occult Blood Urine Nitrate Urine Bilirubin Urine Urobilinogen Ur Leukocyte Esterase Urine RBC Urine WBC Ur Squamous Epith Cells Urine Bacteria Ur Culture Indicated? Vol Urine Centrifuged Ur Random Sodium 90 06/04/24 06:20 WBC 5.6 RBC 4.28 Hgb 12.1 Hct 35.5 L MCV 83.0 MCH 28.2 MCHC 34.0 RDW 12.5 Plt Count 277 Neut % (Auto) 54.6 Lymph % (Auto) 31.4 [place] % (Auto) 11.4 Eos % (Auto) 1.8 L Baso % (Auto) 0.8 Neut # (Auto) 3100 Lymph # (Auto) 1800 [place] # (Auto) 600 Eos # (Auto) 100 Baso # (Auto) 0 Sodium Potassium Chloride Carbon Dioxide BUN Creatinine Estimated GFR BUN/Creatinine Ratio Glucose Uric Acid Calcium Magnesium Total Bilirubin AST ALT Alkaline Phosphatase Total Protein Albumin Globulin Albumin/Globulin Ratio Lipase TSH Urine Color Urine Appearance Urine pH Ur Specific [place] Urine Protein Urine Glucose (UA) Urine Ketones Urine Occult Blood Urine Nitrate Urine Bilirubin Urine Urobilinogen Ur Leukocyte Esterase Urine RBC Urine WBC Ur Squamous Epith Cells Urine Bacteria Ur Culture Indicated? Vol Urine Centrifuged Ur Random Sodium PFS Medical History Diabetes Family History Father Cancer COPD (chronic obstructive pulmonary disease) Mother No problems noted. Social History household members: spouse Smoking Status: Former smoker alcohol intake: current Assessment & Plan Assessment & Plan narrative: 1. Hyponatremia, present on admission and active. 2. UTI, present on admission and active. 3. Epigastric pain with gastritis on CT, present on admission and active. 4. DM 2, present on admission and active. Insulin-dependent. Plan: -BNP q.4 hours. -continue normal saline at 50 mL/hour. -random urine sodium. -continue lispro and Lantus with her baseline dosing. -ceftriaxone IV Q 24 hours. Follow cultures. -Protonix 40 mg IV b.i.d.. Possible need for endoscopy pending clinical course. -add Carafate 1 g q.i.d. orally. PT and OT consults. She was admitted inpatient status, expect 2 nights of hospital medical care necessity. DA is June 06. She may need surgical consult for endoscopy if her pain does not improve significantly over the next 12-24 hours and if her sodium is stable. Full resuscitation. Time-Based Coding :: 25 min spent with patient and on the chart (including review of chart, obtaining history, exam, reviewing outside data, placing orders, documenting exam and treatment plan, and counseling patient) on 06/04.
[2024-06-04 08:00] VITALS: BP 99/56; PULSE 75; RESP 18; TEMP 36; O2SAT 100
[2024-06-04] MEDS: PANTOPRAZOLE 40 MG VIAL IV ×2 (08:18→20:49)
[2024-06-04] MEDS: HEPARIN 5,000 UNIT/ML VIAL 5000 UNIT SUBCUT ×2 (08:18→20:49)
--- NOTE | 2024-06-04 08:48 | CM.DANOTE ---
Initial DCP Assessment Visit Note Reviewed EMR and team rounds for status updates. Met with pt at bedside to introduce self and role, pt was found to be sitting upright in bed, alert/oriented, eating her breakfast. She states that she is still having gastric pain/discomfort, however she will likely need to pursue a Gastroenterology evaluation once outpatient. Pt lives independently in her own home w/spouse in [place]. Her spouse just had heart surgery and is on O2, so he will not be able to assist her at d/c. She has a plan for friends to transport her once she's medically cleared. She declines any DCP assistance needs at this time. Payor: Medicare PCP: Yung Ramirezmicaelamariya Pt is a 73 year-old F presented at the ED yesterday with c/o 3-weeks of persistent, worsening epigastric pain, nausea, but no vomiting. ED labs showed she was hyponatremic, yet nonsymptomatic. Plan was made to admit for monitoring of her gastric pain and sodium replenishment/fluids. Per Dr. Galdamez, he will likely have Surgery do an endoscopy to due further eval of her gastric symptoms. DCP will continue to monitor for any evolving d/c needs prior to her departure. Discharge Planning/Care Management CM Discharge Assessment Start: 06/04/24 08:45 Freq: Status: Active Protocol: Document 06/04/24 08:45 DPL (Rec: 06/04/24 08:48 DPL [id number]) Discharge Planning Assessment Assigned All Purpose Clerk SAWYER Martinez Advance Directives? No History Provided By Patient,Medical Record Has Patient been admitted in last 30 No days? Household Members spouse Type of transporation used prior to Drives own vehicle admit Independent with ADL's Yes Is patient alert and oriented? Yes Comment N/A Caregiver for Another Yes: Spouse just had heart surgery. Comment No identified d/c needs at this time. Barriers to Discharge No Discharge Plan Home Referrals Initiated None needed Whiteboard Updated in Patient Room with Yes name and ext. # of All Purpose Clerk Review Status In Process Please Provide Date Initial DC 06/04/24 Assessment Was Performed
[2024-06-04] MEDS: cefTRIAXone 1,000 MG in SODIUM CHLORIDE 0.9% 100 ML 200 MG IV (09:23)
[2024-06-04] MEDS: CALCIUM CARBONATE 500 MG TAB 1000 MG PO (12:44)
[2024-06-04] MEDS: SUCRALFATE 1 GM/10 ML ORAL SUSP PO ×2 (12:44→17:57)
[2024-06-04 12:58] LABS: BUN Creatinine Ratio 11.3 (6-22); Blood Urea Nitrogen 8 mg/dL (7-17); Calcium 8.3 mg/dL (8.4-10.2); Carbon Dioxide 22 mmol/L (22-32); Chloride 93 mmol/L (98-107); Estimated Glomerular Filt Rate > 60 mL/min (>60); Glucose 129 mg/dL (80-110); HEMOLYSIS < 15 (0-50); Potassium 4.2 mmol/L (3.4-5.1); Sodium 122 mmol/L (137-145)
[2024-06-04 16:00] VITALS: BP 86/52; PULSE 78; RESP 18; TEMP 36.3; O2SAT 98
[2024-06-04 18:38] LABS: BUN Creatinine Ratio 13.2 (6-22); Blood Urea Nitrogen 10 mg/dL (7-17); Calcium 8.2 mg/dL (8.4-10.2); Carbon Dioxide 20 mmol/L (22-32); Chloride 94 mmol/L (98-107); Estimated Glomerular Filt Rate > 60 mL/min (>60); Glucose 131 mg/dL (80-110); HEMOLYSIS < 15 (0-50); Potassium 4.2 mmol/L (3.4-5.1)
[2024-06-04 18:41] LABS: Sodium 119 mmol/L (137-145)
--- NOTE | 2024-06-04 18:59 | PC.NURSE ---
DR. WOODRUFF MADE AWARE OF PATIENTS NA 119.
[2024-06-04 20:00] VITALS: BP 89/56; PULSE 83; RESP 16; TEMP 36.8; O2SAT 97
[2024-06-04] MEDS: SENNOSIDES 8.6 MG TABLET 17.2 MG PO (20:49)
[2024-06-04] MEDS: ACETAMINOPHEN 325 MG TABLET 650 MG PO (20:50)
[2024-06-04 23:53] LABS: BUN Creatinine Ratio 14.7 (6-22); Blood Urea Nitrogen 10 mg/dL (7-17); Calcium 8.5 mg/dL (8.4-10.2); Carbon Dioxide 18 mmol/L (22-32); Chloride 96 mmol/L (98-107); Estimated Glomerular Filt Rate > 60 mL/min (>60); Glucose 124 mg/dL (80-110); HEMOLYSIS < 15 (0-50); Potassium 4.2 mmol/L (3.4-5.1); Sodium 120 mmol/L (137-145)
[2024-06-05] MEDS: SUCRALFATE 1 GM/10 ML ORAL SUSP PO ×4 (00:30→19:39)
[2024-06-05 03:00] VITALS: BP 84/53; PULSE 84; RESP 18; TEMP 36.4; O2SAT 97
[2024-06-05 06:08] LABS: Add Manual Diff / Slide Review NO; Basophils Absolute Auto 100 /uL (0-100); Eosinophils Absolute Auto 100 /uL (0-450); Eosinophils Percent Auto 1.9 % (2-4); Hemoglobin 11.9 g/dL (12.0-16.0); Lymphocytes Absolute Auto 1700 /uL (1100-4500); Lymphocytes Percent Auto 30.7 % (25-40); Mean Corpuscular Hemoglobin 28.4 PG (26-34); Mean Corpuscular Volume 83.4 fL (80-100); Monocytes Absolute Auto 600 /uL (0-900); Monocytes Percent Auto 11.2 % (3-14); Neutrophils Absolute Auto 3100 /uL (1500-7000); Neutrophils Percent Auto 55.2 % (50-75); Platelet Count 276 X10^3/uL (150-400); Red Cell Distribution Width 12.5 % (11.6-14.8); White Blood Cell Count 5.6 X10^3/uL (4.5-11.0)
[2024-06-05 06:48] LABS: BUN Creatinine Ratio 15.2 (6-22); Blood Urea Nitrogen 10 mg/dL (7-17); Calcium 8.2 mg/dL (8.4-10.2); Carbon Dioxide 19 mmol/L (22-32); Chloride 97 mmol/L (98-107); Estimated Glomerular Filt Rate > 60 mL/min (>60); Glucose 110 mg/dL (80-110); HEMOLYSIS 16 (0-50); Potassium 4.4 mmol/L (3.4-5.1); Sodium 122 mmol/L (137-145)
--- NOTE | 2024-06-05 07:26 | PM.PN.1 ---
Subjective Subjective Date Patient Seen: 06/05/24 Time Patient Seen: 09:25 Interval history: Yesterday: She was admitted with hyponatremia and urinary tract infection as well as epigastric pain and dyspepsia. She initially corrected from 118-122 over a very short period of time yesterday and her fluids were held. She then drifted back to 119 was given a g of oral sodium chloride by the night doctor restarted on saline. S: She denies confusion. No dysuria. She does have ongoing epigastric pain which is described as constant and aching. She was started on a PPI. She has been in her under a lot of stress with her 's medical illness recently. She has been eating, but less than usual. No nausea or vomiting, no melena. Interval history: The patient reports ongoing epigastric abdominal pain, relieved briefly by oral antacids. She has an insulin pump and notes blood sugars are generally well controlled with hemoglobin A1c 6.8% and a glucose of 150 this morning. Exam Vital Signs (past 8 hours): - 06/05/24 03:00 Temperature 97.6 F Pulse Rate 84 Respiratory Rate 18 Blood Pressure 84/53 L Pulse Oximetry 97 Oxygen Flow Rate 0 Oxygen Delivery Method Room Air Oxygen Flow Rate 0 Narrative Exam Narrative: GENERAL: This is a well-nourished, well-developed patient, in no apparent distress. EYES: Pupils equal round and reactive. Extraocular motions intact. No scleral icterus. No injection or drainage. ENT: Mucous membranes pink and moist. NECK: Supple, nontender, no meningeal signs. CARDIOVASCULAR: Regular rate and rhythm without murmurs, gallops, or rubs. RESPIRATORY: Clear to auscultation. GASTROINTESTINAL: Abdomen soft, mild epigastric tenderness to palpation, nondistended. EXTREMITIES: No clubbing, cyanosis, or edema. NEUROLOGIC: Alert, oriented, speech fluent, full upper and lower motor strength, no focal deficits evident. DERMATOLOGIC: No rashes or skin lesions. Objective Labs 06/05/24 05:53 06/05/24 05:53 Labs: Laboratory Results - last 24 hr 06/04/24 06/04/24 06/04/24 12:37 18:20 23:31 WBC RBC Hgb Hct MCV MCH MCHC RDW Plt Count Neut % (Auto) Lymph % (Auto) [place] % (Auto) Eos % (Auto) Baso % (Auto) Neut # (Auto) Lymph # (Auto) [place] # (Auto) Eos # (Auto) Baso # (Auto) Sodium 122 L 119 L* 120 L Potassium 4.2 4.2 4.2 Chloride 93 L 94 L 96 L Carbon Dioxide 22 20 L 18 L BUN 8 10 10 Creatinine 0.71 0.76 0.68 Estimated GFR > 60 > 60 > 60 BUN/Creatinine Ratio 11.3 13.2 14.7 Glucose 129 H 131 H 124 H Calcium 8.3 L 8.2 L 8.5 06/05/24 05:53 WBC 5.6 RBC 4.20 Hgb 11.9 L Hct 35.0 L MCV 83.4 MCH 28.4 MCHC 34.0 RDW 12.5 Plt Count 276 Neut % (Auto) 55.2 Lymph % (Auto) 30.7 [place] % (Auto) 11.2 Eos % (Auto) 1.9 L Baso % (Auto) 1.0 Neut # (Auto) 3100 Lymph # (Auto) 1700 [place] # (Auto) 600 Eos # (Auto) 100 Baso # (Auto) 100 Sodium 122 L Potassium 4.4 Chloride 97 L Carbon Dioxide 19 L BUN 10 Creatinine 0.66 Estimated GFR > 60 BUN/Creatinine Ratio 15.2 Glucose 110 Calcium 8.2 L [facility] Medical History Diabetes Family History Father Cancer COPD (chronic obstructive pulmonary disease) Mother No problems noted. Social History household members: spouse Smoking Status: Former smoker alcohol intake: current Assessment & Plan Assessment & Plan narrative: 1. Hyponatremia, present on admission and active. Improved with normal saline over night. Continue to monitor. Random urine sodium elevated at 168 yesterday, improved to 90 today per 2. No evidence of urinary infection. Stop antibiotics. 3. Epigastric pain with gastritis on CT, present on admission and active. Persistent and symptomatic. Obtain upper endoscopy. Surgery consulted. Case reviewed with Dr. Mckeon 4. DM 2, present on admission and active. Insulin-dependent. Continue insulin pump. Plan: -continue normal saline at 50 mL/hour. -continue home insulin pump. -discontinue Ceftriaxone -Protonix 40 mg IV b.i.d.. -Carafate 1 g q.i.d. orally. -upper endoscopy -PT and OT consults. She was admitted inpatient status, expect 2 nights of hospital medical care necessity. DA is June 06. She may need surgical consult for endoscopy if her pain does not improve significantly over the next 12-24 hours and if her sodium is stable. Full resuscitation. Time-Based Coding :: [TOTAL MINUTES] spent with patient and on the chart (including review of chart, obtaining history, exam, reviewing outside data, placing orders, documenting exam and treatment plan, and counseling patient) on [DATE]. PROFEE Charge codes Subsequent inpatient/observation care: [id number]
[2024-06-05 08:30] VITALS: BP 93/57; PULSE 73; RESP 17; TEMP 36.6; O2SAT 97
[2024-06-05] MEDS: PANTOPRAZOLE 40 MG VIAL IV ×2 (09:19→20:47)
[2024-06-05] MEDS: cefTRIAXone 1,000 MG in SODIUM CHLORIDE 0.9% 100 ML 200 MG IV (09:20)
[2024-06-05] MEDS: SODIUM CHLORIDE 0.9% 1,000 ML 50 ML IV (12:40)
--- NOTE | 2024-06-05 12:58 | CM.DPC ---
DCP Continued Reviewed EMR and team rounds for pt?s medical status. Per Provider, pt is still experiencing pain and is being recommended for endoscopy. Per RN, scope is scheduled for tomorrow, 06/06, pending results, pt can be eligible for discharge; this is pt's preference. No new discharge needs identified at this time. Plan: Anticipating pt to discharge tomorrow, 06/06, to transport with friends/family. CM Team will continue to follow for coordination of discharge plans. RANDOLPH Benitez
[2024-06-05 19:00] VITALS: BP 97/64; PULSE 79; RESP 18; TEMP 37; O2SAT 98
[2024-06-05] MEDS: INSULIN PUMP SUBCUT (19:34)
[2024-06-05] MEDS: SENNOSIDES 8.6 MG TABLET 17.2 MG PO (20:47)
[2024-06-06] VITALS (13 sets, daily range): BP systolic 88–99; BP diastolic 54–63; PULSE 71–89; RESP 10–18; TEMP 35.8–36.9; O2SAT 92–100
--- NOTE | 2024-06-06 | PATH_ITS ---
[facility] Accession Number: [id number] No. of containers..01 Tissue . 01 Material submitted: . gastrointestinal site - STOMACH, ANTRUM . 01 Clinical history: . FOR H.PYLORI . 01 Diagnosis: STOMACH, ANTRUM: Gastric mucosa with mild chronic inflammation. No Helicobacter organisms identified. No intestinal metaplasia, dysplasia, or malignancy identified. [facility] 06/10/20241743 Local . 01 Electronically signed: . Rc Leon MD, Pathologist NPI- [id number] . 01 Gross description: . ANTRAL: Received in formalin is 1 fragment(s) of qu[place], soft tissue measuring 0.2 x 0.2 x 0.2 cm submitted entirely in 1 cassette(s) /VERONIKA 06/10/20241743 Local . 01 Microscopic: . ANTRAL: An immunohistochemical stain was performed to evaluate for Helicobacter organisms and is negative. The control stains appropriately. * This test was developed and its performance characteristics determined by [facility]. It has not been cleared or approved by the U.S. Food and Drug Administration. The FDA has determined that such clearance or approval is not necessary. This test is used for clinical purposes. It should not be regarded as investigational or for research. . 01 Pathologist provided ICD-10: K29.50 . 01 CPT . 433330, L54414 Specimen Comment: A courtesy copy of this report has been sent to [phone] Performed at: [address] [id number] MD Rc Leon MD Phone: [phone]
[2024-06-06] MEDS: SUCRALFATE 1 GM/10 ML ORAL SUSP PO ×5 (01:18→23:25)
[2024-06-06] MEDS: SODIUM CHLORIDE 0.9% 1,000 ML 50 ML IV (01:19)
[2024-06-06 06:10] LABS: Add Manual Diff / Slide Review NO; Basophils Absolute Auto 100 /uL (0-100); Basophils Percent Auto 1.1 % (0-2); Eosinophils Absolute Auto 100 /uL (0-450); Eosinophils Percent Auto 2.1 % (2-4); Hematocrit 34.9 % (36-46); Hemoglobin 11.8 g/dL (12.0-16.0); Lymphocytes Absolute Auto 1800 /uL (1100-4500); Lymphocytes Percent Auto 31.9 % (25-40); Mean Corpuscular HGB Conc 33.9 % (30-36); Mean Corpuscular Hemoglobin 28.4 PG (26-34); Mean Corpuscular Volume 83.8 fL (80-100); Monocytes Absolute Auto 700 /uL (0-900); Monocytes Percent Auto 11.8 % (3-14); Neutrophils Absolute Auto 3000 /uL (1500-7000); Neutrophils Percent Auto 53.1 % (50-75); Platelet Count 273 X10^3/uL (150-400); Red Blood Cell Count 4.16 X10^6/uL (4.0-5.2); Red Cell Distribution Width 12.5 % (11.6-14.8); White Blood Cell Count 5.7 X10^3/uL (4.5-11.0)
[2024-06-06 06:28] LABS: BUN Creatinine Ratio 12.5 (6-22); Blood Urea Nitrogen 8 mg/dL (7-17); Calcium 8.2 mg/dL (8.4-10.2); Carbon Dioxide 19 mmol/L (22-32); Chloride 98 mmol/L (98-107); Estimated Glomerular Filt Rate > 60 mL/min (>60); Glucose 114 mg/dL (80-110); HEMOLYSIS < 15 (0-50); Potassium 4.2 mmol/L (3.4-5.1); Sodium 124 mmol/L (137-145)
[2024-06-06] MEDS: PANTOPRAZOLE 40 MG VIAL IV ×2 (08:45→20:53)
--- NOTE | 2024-06-06 09:01 | PM.CN ---
History of Present Illness Consult details Date Patient Seen: 06/06/24 Time Patient Seen: 09:01 Chief complaint: sent from [facility] abd pain Reason for consult: anemia and abdominal pain Requesting provider: Mauricio Domínguez Home Medications and Allergies Home Medications Medication Instructions Recorded Confirmed Type blood-glucose sensor (Dexcom G6 04/14/22 06/03/24 History Sensor device) blood-glucose transmitter (Dexcom 04/14/22 06/03/24 History G6 Transmitter device) insulin lispro 100 unit/mL See Rx Instructions .Route .COMPLEX 04/14/22 06/03/24 History subcutaneous solution Allergies Allergy/AdvReac Type Severity Reaction Status Date / Time No Known Drug Allergies Allergy Verified 06/03/24 10:14 Review of Systems Review of Systems ROS: Yes All systems reviewed with the patient and are negative except as otherwise documented Exam Vital Signs (past 8 hours): - 06/06/24 03:00 06/06/24 08:00 Temperature 97.2 F L 96.8 F L Pulse Rate 78 81 Respiratory Rate 18 10 L Blood Pressure 99/60 97/60 Pulse Oximetry 92 96 Oxygen Flow Rate 0 0 Oxygen Delivery Method Room Air Oxygen Flow Rate 0 Const General: cooperative, healthy appearing and comfortable Nutritional Appearance: average body habitus Orientation: alert, awake and oriented x3 HENMT Head: normocephalic and atraumatic Ears: hearing grossly normal bilaterally Eyes Sclera: sclerae normal Neck Neck: trachea midline Resp Effort & Inspection: normal respiratory effort and able to speak in complete sentences Cardio Rate: regular rate Rhythm: regular rhythm GI Inspection: normal to inspection Palpation: soft Skin General: atrophy Neuro General: patient alert, patient awake and patient oriented x3 Psych Judgment: judgment good Objective Labs 06/06/24 05:44 06/06/24 05:44 Labs: Laboratory Results - last 24 hr 06/06/24 05:44 WBC 5.7 RBC 4.16 Hgb 11.8 L Hct 34.9 L MCV 83.8 MCH 28.4 MCHC 33.9 RDW 12.5 Plt Count 273 Neut % (Auto) 53.1 Lymph % (Auto) 31.9 [place] % (Auto) 11.8 Eos % (Auto) 2.1 Baso % (Auto) 1.1 Neut # (Auto) 3000 Lymph # (Auto) 1800 [place] # (Auto) 700 Eos # (Auto) 100 Baso # (Auto) 100 Sodium 124 L Potassium 4.2 Chloride 98 Carbon Dioxide 19 L BUN 8 Creatinine 0.64 Estimated GFR > 60 BUN/Creatinine Ratio 12.5 Glucose 114 H Calcium 8.2 L PFSH Medical History Diabetes Family History Father Cancer COPD (chronic obstructive pulmonary disease) Mother No problems noted. Social History household members: spouse Tobacco & Substance Use Smoking Status: Former smoker alcohol intake: current Assessment & Plan Assessment & Plan narrative: anemia and abdominal pain Plan: diagnostic EGD with anesthesia Time-Based Coding :: [TOTAL MINUTES] spent with patient and on the chart (including review of chart, obtaining history, exam, reviewing outside data, placing orders, documenting exam and treatment plan, and counseling patient) on [DATE].
[2024-06-06] MEDS: LACTATED RINGERS 1,000 ML 42 ML IV (09:04)
--- NOTE | 2024-06-06 09:21 | PM.OP.1 ---
Operative Date/Time/Diagnoses Date of procedure: 06/06/24 Time of procedure: 09:21 Pre-op diagnosis: Anemia, abdominal pain Post-op diagnosis: same Procedure & Clinicians Procedure: EGD with biopsy of cold forceps Same procedure as scheduled: Yes Indications: Anemia and abdominal pain left-sided Surgeon: Mindy Mckeon Click Yes if Unassisted: Yes Anesthesia Type: MAC +/- Operative Notes Findings: Severe gastritis, mild duodenitis. No ulcers. No hiatal hernia. Esophagus normal Closure Type: not applicable Specimen(s): other (Antral biopsy of mucosa for H pylori) Estimated Blood Loss (mL): 1 Blood products transfused: none Procedure in detail: Preop diagnosis: Anemia, abdominal pain Postop diagnosis: Same Operative procedure: EGD with cold forceps biopsy Surgeon: Paz Mckeon MD Anesthetic: Sedation Findings: Severe gastritis, mild duodenitis. No hiatal hernia Procedure: Patient placed in a lateral position. Anesthetic was provided. Scope was inserted into the esophagus advanced to the stomach and identified the pylorus. A intubated into the duodenal with insufflation extraction of the scope and the above findings. I paused at the antrum of the stomach and took cold forceps biopsies of the mucosa for H pylori testing. Retroflex was included in the stomach to demonstrate no hiatal hernia. Impression severe gastritis, mild duodenitis. Plan: PPI per Dr. Ashley henry with discharge later today Complications: none Post-operative Condition: stable Disposition: PACU
--- NOTE | 2024-06-06 10:25 | PM.PN.1 ---
Subjective Subjective Date Patient Seen: 06/06/24 Time Patient Seen: 07:40 Interval history: The patient reports ongoing epigastric discomfort. She has undergone EGD showing gastritis today. Exam Vital Signs (past 8 hours): - 06/06/24 03:00 06/06/24 08:00 06/06/24 08:50 Temperature 97.2 F L 96.8 F L 97.0 F L Pulse Rate 78 81 76 Respiratory Rate 18 10 L 14 Blood Pressure 99/60 97/60 98/58 L Pulse Oximetry 92 96 100 Oxygen Delivery Method Oxygen Flow Rate 0 0 0 06/06/24 09:05 06/06/24 09:19 06/06/24 09:21 Temperature 97.7 F Pulse Rate 89 75 75 Respiratory Rate 14 14 12 Blood Pressure 97/56 L 94/63 95/61 Pulse Oximetry 98 99 95 Oxygen Delivery Method Room Air Room Air Room Air Oxygen Flow Rate 06/06/24 09:26 06/06/24 09:31 06/06/24 09:36 Temperature Pulse Rate 78 74 79 Respiratory Rate 11 L 14 12 Blood Pressure 94/60 95/62 96/61 Pulse Oximetry 99 100 100 Oxygen Delivery Method Room Air Room Air Room Air Oxygen Flow Rate 06/06/24 09:41 Temperature 98.4 F Pulse Rate 72 Respiratory Rate 15 Blood Pressure 95/62 Pulse Oximetry 99 Oxygen Delivery Method Room Air Oxygen Flow Rate Oxygen Delivery Method Room Air Oxygen Flow Rate 0 Narrative Exam Narrative: GENERAL: This is a well-nourished, well-developed patient, in no apparent distress. EYES: Pupils equal round and reactive. Extraocular motions intact. No scleral icterus. No injection or drainage. ENT: Mucous membranes pink and moist. NECK: Supple, nontender, no meningeal signs. GASTROINTESTINAL: Abdomen soft, mild epigastric tenderness to palpation, nondistended. EXTREMITIES: No clubbing, cyanosis, or edema. NEUROLOGIC: Alert, oriented, speech fluent, full upper and lower motor strength, no focal deficits evident. DERMATOLOGIC: No rashes or skin lesions. Objective Labs 06/06/24 05:44 06/06/24 05:44 Labs: Laboratory Results - last 24 hr 06/06/24 05:44 WBC 5.7 RBC 4.16 Hgb 11.8 L Hct 34.9 L MCV 83.8 MCH 28.4 MCHC 33.9 RDW 12.5 Plt Count 273 Neut % (Auto) 53.1 Lymph % (Auto) 31.9 [place] % (Auto) 11.8 Eos % (Auto) 2.1 Baso % (Auto) 1.1 Neut # (Auto) 3000 Lymph # (Auto) 1800 [place] # (Auto) 700 Eos # (Auto) 100 Baso # (Auto) 100 Sodium 124 L Potassium 4.2 Chloride 98 Carbon Dioxide 19 L BUN 8 Creatinine 0.64 Estimated GFR > 60 BUN/Creatinine Ratio 12.5 Glucose 114 H Calcium 8.2 L PFSH Medical History Diabetes Family History Father Cancer COPD (chronic obstructive pulmonary disease) Mother No problems noted. Social History household members: spouse Smoking Status: Former smoker alcohol intake: current Assessment & Plan Assessment & Plan narrative: 1. Hyponatremia, present on admission and active. Improving very gradually with IV normal saline. Continue to monitor. Random urine sodium elevated at 168 on 06/04/2024, improved to 90 on 06/05/2024 per 2. No evidence of urinary infection. Discontinued antibiotics. 3. Epigastric pain due to gastritis on CT and EGD, H pylori pending, present on admission and active. Persistent and symptomatic. Case reviewed with Dr. Mckeon. Advance diet. Monitor. 4. DM 2, present on admission and active. Insulin-dependent. Continue insulin pump. Plan: -discontinue IV fluids -salty broth t.i.d. -advanced diabetic diet -continue home insulin pump. -Protonix 40 mg IV b.i.d., switch to oral tomorrow if doing well -Carafate 1 g q.i.d. orally. She was admitted inpatient status, expect 2 nights of hospital medical care necessity. Likely discharge tomorrow. Full resuscitation. Time-Based Coding :: [TOTAL MINUTES] spent with patient and on the chart (including review of chart, obtaining history, exam, reviewing outside data, placing orders, documenting exam and treatment plan, and counseling patient) on [DATE]. PROFEE Charge codes Subsequent inpatient/observation care: 36031
--- NOTE | 2024-06-06 10:44 | CM.DPNOTE ---
DCP Note SHIPWRIGHT SUPERVISOR reviewed EMR. Pt down for endoscopy early this morning. Per RN/hospitalist in morning rounds, sodium remains low. Anticipate dc tomorrow when sodium WNL. No new discharge needs identified at this time. Plan: Anticipating pt to discharge tomorrow, 06/07, to transport with friends/family. CM Team will continue to follow for coordination of discharge plans. SAWYER Mckoy
[2024-06-06] MEDS: INSULIN PUMP SUBCUT (18:38)
[2024-06-06] MEDS: SENNOSIDES 8.6 MG TABLET 17.2 MG PO (20:47)
[2024-06-07 04:00] VITALS: BP 77/61; PULSE 79; RESP 17; TEMP 36.9; O2SAT 94
[2024-06-07 05:10] VITALS: BP 102/57
[2024-06-07] MEDS: SUCRALFATE 1 GM/10 ML ORAL SUSP PO ×3 (05:20→18:39)
[2024-06-07] MEDS: ACETAMINOPHEN 325 MG TABLET 650 MG PO (05:20)
[2024-06-07] MEDS: ONDANSETRON 4 MG/2 ML INJ IV ×2 (05:20→17:12)
[2024-06-07 05:35] LABS: Add Manual Diff / Slide Review NO; Basophils Absolute Auto 200 /uL (0-100); Eosinophils Absolute Auto 100 /uL (0-450); Eosinophils Percent Auto 2.3 % (2-4); Hematocrit 34.4 % (36-46); Hemoglobin 11.8 g/dL (12.0-16.0); Lymphocytes Absolute Auto 1900 /uL (1100-4500); Mean Corpuscular HGB Conc 34.2 % (30-36); Mean Corpuscular Hemoglobin 28.5 PG (26-34); Mean Corpuscular Volume 83.3 fL (80-100); Monocytes Absolute Auto 800 /uL (0-900); Neutrophils Absolute Auto 3500 /uL (1500-7000); Neutrophils Percent Auto 53.7 % (50-75); Platelet Count 285 X10^3/uL (150-400); Red Blood Cell Count 4.13 X10^6/uL (4.0-5.2); Red Cell Distribution Width 12.5 % (11.6-14.8); White Blood Cell Count 6.5 X10^3/uL (4.5-11.0)
[2024-06-07 06:05] LABS: BUN Creatinine Ratio 11.3 (6-22); Blood Urea Nitrogen 7 mg/dL (7-17); Calcium 8.5 mg/dL (8.4-10.2); Carbon Dioxide 19 mmol/L (22-32); Chloride 94 mmol/L (98-107); Estimated Glomerular Filt Rate > 60 mL/min (>60); Glucose 114 mg/dL (80-110); HEMOLYSIS < 15 (0-50); Sodium 120 mmol/L (137-145)
--- NOTE | 2024-06-07 07:54 | P.PN_ITS ---
Subjective Subjective Date Patient Seen: 06/07/24 Time Patient Seen: 07:40 Interval history: The patient reports persistent but improved epigastric discomfort. She notes some nausea and the dizziness with standing. Upper endoscopy yesterday showed gastritis. Normal saline was stopped and salty broth t.i.d. started. Her sodium went from 124 yesterday to 120 this morning. Exam Vital Signs (past 8 hours): - 06/07/24 04:00 06/07/24 05:10 Temperature 98.5 F Pulse Rate 79 Respiratory Rate 17 Blood Pressure 77/61 L 102/57 L Pulse Oximetry 94 Oxygen Delivery Method Room Air Oxygen Flow Rate 0 Narrative Exam Narrative: GENERAL: This is a well-nourished, well-developed patient, in no apparent distress. EYES: Pupils equal round and reactive. Extraocular motions intact. No scleral icterus. No injection or drainage. ENT: Mucous membranes pink and moist. NECK: Supple, nontender, no meningeal signs. CARDIOVASCULAR: Regular rate and rhythm without murmurs, gallops, or rubs. RESPIRATORY: Clear to auscultation. GASTROINTESTINAL: Abdomen soft, mild epigastric tenderness to palpation, nondistended. EXTREMITIES: No clubbing, cyanosis, or edema. NEUROLOGIC: Alert, oriented, speech fluent, full upper and lower motor strength, no focal deficits evident. DERMATOLOGIC: No rashes or skin lesions. Objective Labs 06/07/24 05:03 06/07/24 05:03 Labs: Laboratory Results - last 24 hr 06/07/24 05:03 WBC 6.5 RBC 4.13 Hgb 11.8 L Hct 34.4 L MCV 83.3 MCH 28.5 MCHC 34.2 RDW 12.5 Plt Count 285 Neut % (Auto) 53.7 Lymph % (Auto) 29.0 [place] % (Auto) 12.0 Eos % (Auto) 2.3 Baso % (Auto) 3.0 H Neut # (Auto) 3500 Lymph # (Auto) 1900 [place] # (Auto) 800 Eos # (Auto) 100 Baso # (Auto) 200 H Sodium 120 L Potassium 4.0 Chloride 94 L Carbon Dioxide 19 L BUN 7 Creatinine 0.62 Estimated GFR > 60 BUN/Creatinine Ratio 11.3 Glucose 114 H Calcium 8.5 [facility] Medical History Diabetes Family History Father Cancer COPD (chronic obstructive pulmonary disease) Mother No problems noted. Social History household members: spouse Smoking Status: Former smoker alcohol intake: current Assessment & Plan Assessment & Plan narrative: 1. Hyponatremia, present on admission and active. Improving very gradually with IV normal saline initially but back down to 120 with stopping of IV fluids. Continue to monitor. Random urine sodium elevated at 168 on 06/04/2024, improved to 90 on 06/05/2024. Rule out adrenal insufficiency. Check a Cortrosyn stimulation test. Restart normal saline IV 84 mL/minute, administer 40 mg of IV furosemide and recheck BMP this afternoon. 2. No evidence of urinary infection. Discontinued antibiotics. 3. Epigastric pain due to gastritis on CT and EGD, H pylori pending, present on admission and active. Persistent and symptomatic. Case reviewed with Dr. Mckeon. Advance diet. Monitor. 4. DM 1, present on admission and active. Insulin-dependent. Continue insulin pump. Plan: -restart IV fluids with normal saline at 84 mL per hour -salty broth t.i.d. -Cortrosyn stimulation test -furosemide 40 mg IV x1 this morning -recheck BMP this afternoon and tomorrow morning -advanced diabetic diet -continue home insulin pump. -Protonix 40 mg IV b.i.d., switch to oral tomorrow if doing well -Carafate 1 g q.i.d. orally. Full resuscitation. Time-Based Coding :: [TOTAL MINUTES] spent with patient and on the chart (including review of chart, obtaining history, exam, reviewing outside data, placing orders, documenting exam and treatment plan, and counseling patient) on [DATE]. PROFEE Charge codes Subsequent inpatient/observation care: 95620
[2024-06-07 08:06] VITALS: BP 88/50; PULSE 76; RESP 17; TEMP 36.1; O2SAT 97
[2024-06-07] MEDS: SODIUM CHLORIDE 0.9% 1,000 ML 84 ML IV ×2 (08:30→20:39)
[2024-06-07 08:38] VITALS: BP 91/57; PULSE 79
[2024-06-07] MEDS: PANTOPRAZOLE 40 MG VIAL IV (08:51)
[2024-06-07] MEDS: COSYNTROPIN 0.25 MG VIAL IV (08:59)
[2024-06-07 09:36] LABS: Cortisol Random 5.23 ug/dL
[2024-06-07 10:53] LABS: Cortisol AM (Before 10AM) 7.06 ug/dL (4.46-22.7)
[2024-06-07] MEDS: FUROSEMIDE 40 MG/4 ML VIAL IV (11:47)
[2024-06-07] MEDS: BISACODYL 10 MG SUPP PR (12:43)
--- NOTE | 2024-06-07 13:50 | CM.DPC ---
DCP Cont. Reviewd EMR and team rounds for status updates. Pt's sodium dropped this morning, so she will be restarted on IV fluids and continued sodium replenishment. If she is stable tomorrow, she will d/c back home.
[2024-06-07] MEDS: HYDROCORTISONE 10 MG TABLET 20 MG PO (15:01)
[2024-06-07 16:09] VITALS: BP 98/67; PULSE 87; RESP 19; TEMP 36.2; O2SAT 99
[2024-06-07 16:19] LABS: BUN Creatinine Ratio 11.4 (6-22); Blood Urea Nitrogen 10 mg/dL (7-17); Calcium 8.8 mg/dL (8.4-10.2); Carbon Dioxide 21 mmol/L (22-32); Chloride 89 mmol/L (98-107); Estimated Glomerular Filt Rate > 60 mL/min (>60); Glucose 163 mg/dL (80-110); HEMOLYSIS < 15 (0-50); Potassium 3.6 mmol/L (3.4-5.1); Sodium 121 mmol/L (137-145)
[2024-06-07] MEDS: INSULIN PUMP SUBCUT (18:38)
[2024-06-07 19:00] VITALS: BP 96/64; PULSE 94; RESP 18; TEMP 37; O2SAT 99
[2024-06-07] MEDS: SENNOSIDES 8.6 MG TABLET 17.2 MG PO (20:44)
[2024-06-07] MEDS: PANTOPRAZOLE DR 40 MG TABLET PO (20:44)
[2024-06-08] MEDS: SUCRALFATE 1 GM/10 ML ORAL SUSP PO ×4 (00:35→18:26)
[2024-06-08 03:00] VITALS: BP 90/55; PULSE 93; RESP 18; TEMP 36.6; O2SAT 94
[2024-06-08 06:04] LABS: Add Manual Diff / Slide Review NO; Basophils Absolute Auto 0 /uL (0-100); Basophils Percent Auto 0.6 % (0-2); Eosinophils Absolute Auto 100 /uL (0-450); Eosinophils Percent Auto 1.3 % (2-4); Hematocrit 35.4 % (36-46); Lymphocytes Absolute Auto 1700 /uL (1100-4500); Mean Corpuscular HGB Conc 33.8 % (30-36); Mean Corpuscular Hemoglobin 28.4 PG (26-34); Mean Corpuscular Volume 83.8 fL (80-100); Monocytes Absolute Auto 800 /uL (0-900); Monocytes Percent Auto 11.1 % (3-14); Neutrophils Absolute Auto 4500 /uL (1500-7000); Platelet Count 301 X10^3/uL (150-400); Red Blood Cell Count 4.22 X10^6/uL (4.0-5.2); Red Cell Distribution Width 12.4 % (11.6-14.8); White Blood Cell Count 7.2 X10^3/uL (4.5-11.0)
[2024-06-08 06:28] LABS: BUN Creatinine Ratio 14.7 (6-22); Blood Urea Nitrogen 10 mg/dL (7-17); Calcium 8.4 mg/dL (8.4-10.2); Carbon Dioxide 20 mmol/L (22-32); Chloride 94 mmol/L (98-107); Estimated Glomerular Filt Rate > 60 mL/min (>60); Glucose 120 mg/dL (80-110); HEMOLYSIS < 15 (0-50); Magnesium 1.6 mg/dL (1.6-2.3); Potassium 3.9 mmol/L (3.4-5.1); Sodium 123 mmol/L (137-145)
--- NOTE | 2024-06-08 07:48 | P.PN_ITS ---
Subjective Subjective Interval history: She was feeling better. Her abdominal pain is much improved. No nausea, she was eating without difficulty. She denies any confusion. Her sodium is up to 123. She had a positive Cortrosyn stimulation test. She was on oral steroids. Exam Vital Signs (past 8 hours): - 06/08/24 03:00 Temperature 97.9 F Pulse Rate 93 H Respiratory Rate 18 Blood Pressure 90/55 L Pulse Oximetry 94 Oxygen Flow Rate 0 Oxygen Delivery Method Room Air Oxygen Flow Rate 0 Narrative Exam Narrative: NAD, alert and oriented. Fluent speech. Lungs are clear, normal rate and effort. Heart is regular, no murmur gallop or rub. Abdomen is soft, non distended. Extremities are free of edema. Objective Labs 06/08/24 05:37 06/08/24 05:37 Labs: Laboratory Results - last 24 hr 06/07/24 06/07/24 06/07/24 08:48 10:00 16:03 WBC RBC Hgb Hct MCV MCH MCHC RDW Plt Count Neut % (Auto) Lymph % (Auto) [place] % (Auto) Eos % (Auto) Baso % (Auto) Neut # (Auto) Lymph # (Auto) [place] # (Auto) Eos # (Auto) Baso # (Auto) Sodium 121 L Potassium 3.6 Chloride 89 L Carbon Dioxide 21 L BUN 10 Creatinine 0.88 Estimated GFR > 60 BUN/Creatinine Ratio 11.4 Glucose 163 H Calcium 8.8 Magnesium Random Cortisol 5.23 Cortisol AM Sample 7.06 06/08/24 05:37 WBC 7.2 RBC 4.22 Hgb 12.0 Hct 35.4 L MCV 83.8 MCH 28.4 MCHC 33.8 RDW 12.4 Plt Count 301 Neut % (Auto) 63.0 Lymph % (Auto) 24.0 L [place] % (Auto) 11.1 Eos % (Auto) 1.3 L Baso % (Auto) 0.6 Neut # (Auto) 4500 Lymph # (Auto) 1700 [place] # (Auto) 800 Eos # (Auto) 100 Baso # (Auto) 0 Sodium 123 L Potassium 3.9 Chloride 94 L Carbon Dioxide 20 L BUN 10 Creatinine 0.68 Estimated GFR > 60 BUN/Creatinine Ratio 14.7 Glucose 120 H Calcium 8.4 Magnesium 1.6 Random Cortisol Cortisol AM Sample [facility] Medical History Diabetes Family History Father Cancer COPD (chronic obstructive pulmonary disease) Mother No problems noted. Social History household members: spouse Smoking Status: Former smoker alcohol intake: current Assessment & Plan Assessment & Plan narrative: 1. Hyponatremia, present on admission and improving. -continue saline and hydrocortisone 2. Adrenal insufficiency, new and active. 3. Epigastric pain due to gastritis on CT and EGD, H pylori pending, present on admission and active. Persistent and symptomatic. Case reviewed with Dr. Mckeon. Advance diet. Monitor. 4. DM 1, present on admission and active. Insulin-dependent. Continue insulin pump. Plan: -continue normal saline at 84 mL per hour -salty broth t.i.d. -recheck BMP this afternoon and tomorrow morning -advanced diabetic diet -continue home insulin pump. -Protonix 40 mg IV b.i.d., switch to oral tomorrow if doing well -Carafate 1 g q.i.d. orally. -continue hydrocortisone 20 mg daily. DA/Dispo: Likely home tomorrow, June 09 if sodium is above 128. Time-Based Coding :: 30 min spent with patient and on the chart (including review of chart, obtaining history, exam, reviewing outside data, placing orders, documenting exam and treatment plan, and counseling patient) on 06/08.
[2024-06-08 08:00] VITALS: BP 98/62; PULSE 79; RESP 16; TEMP 36.3; O2SAT 100
[2024-06-08] MEDS: PANTOPRAZOLE DR 40 MG TABLET PO ×2 (08:58→21:56)
[2024-06-08] MEDS: HYDROCORTISONE 10 MG TABLET 20 MG PO (08:58)
--- NOTE | 2024-06-08 10:37 | DIET.CONS ---
Dietary Consultation Note Admission Date: 06/03/2024 13:33 Assessment: 73 y F admitted for hyponatremia and epigastric pain d/t gastritis. PMH DM 2, insulin dependent. Nutrition screened for LOS. Met with pt at bedside who reports this morning she felt an improvement in appetite and ate breakfast. Reports for 3 weeks she was eating very little, <50% of usual intake related to epigastric pain and nausea, and lost 10 lb. Unable to provide dietary recall, varied. Nutrition focused physical exam: -Mild loss temporalis, deltoid, interosseous -No subcutaneous fat loss, assessed orbital, buccal, and tricep BG 116-142 last 24 h per EMR. Pt using her insulin pump. Ht: 165.1 cm Wt: 62.596 kg BMI: 22.9 UBW: 68.18 kg per pt 3-4 weeks ago (-8% weight loss in 4 weeks, severe) Last BM: 06/05/24 (06/05/24 10:00) MNA: 11 Robin Score: 23 Diet: 06/06/24 Lunch Carbohydrate Consistent Diet Diet Modifications: Salty broth TID Carbohydrate level: Medium (3 CHO) Bedtime snack: Yes Reflex DM orders: No Food Texture: Level 7 - Regular Liquid Consistency: Level 0 - Thin Nutrition Percent Meal Consumed 25% 06/06/24 18:00 Labs: RBC 4.22 X10^6/uL (4.0-5.2) 06/08/24 05:37 Hgb 12.0 g/dL (12.0-16.0) 06/08/24 05:37 Hct 35.4 % (36-46) L 06/08/24 05:37 Creatinine 0.68 mg/dL (0.52-1.04) 06/08/24 05:37 Nutrition Diagnosis: Severe acute Protein Calorie Malnutrition r/t decreased appetite in setting of epigastric pain and nausea as evidenced by 8% weight loss in 3 weeks (severe), <50% of estimated energy intake in 3 weeks (severe), mild muscle loss (temporalis, deltoid, interosseous) Interventions: 1. Additional protein based food item added BID (yogurt, cottage cheese, extra protein serving), continue bedtime snack and broths TID 2. Reviewed protein sources, encouraged adequate intake at each meal and snack EER: 75-90 g (1.25-1.5 g/kg per PCM) Monitoring/Evaluations: po intakes Electronically Signed by: Jeanna Jara 06/08/24 10:37 Clinical Dietitian [address] [id number]
[2024-06-08] MEDS: MAGNESIUM CHLORIDE 64 MG TABLET 128 MG PO (10:44)
--- NOTE | 2024-06-08 12:33 | CM.DPNOTE ---
DCP Note FINANCIAL INTERN reviewed EMR. Per hospitalist in morning rounds, want to keep pt one more night to monitor adrenal insufficiency. FINANCIAL INTERN met with pt in room. Eager to dc home, understands it may be one more day. Denies any CM needs at this time, will dc home with friend support. Plan: Anticipating pt to discharge tomorrow, 06/09, to transport with friends/family. No identified barriers to safe dc home identified at this time. F/u with OP providers recommended. CM team will continue to follow as needed SAWYER Mckoy
[2024-06-08] MEDS: FLUDROCORTISONE 0.1 MG TABLET 0.05 MG PO (14:53)
[2024-06-08 18:00] VITALS: BP 106/66; PULSE 78; RESP 16; TEMP 36.1; O2SAT 100
[2024-06-08 18:10] LABS: BUN Creatinine Ratio 15.9 (6-22); Blood Urea Nitrogen 11 mg/dL (7-17); Calcium 8.4 mg/dL (8.4-10.2); Carbon Dioxide 21 mmol/L (22-32); Chloride 95 mmol/L (98-107); Estimated Glomerular Filt Rate > 60 mL/min (>60); Glucose 190 mg/dL (80-110); HEMOLYSIS < 15 (0-50); Potassium 4.3 mmol/L (3.4-5.1); Sodium 123 mmol/L (137-145)
[2024-06-08] MEDS: INSULIN PUMP SUBCUT (18:28)
[2024-06-08] MEDS: FUROSEMIDE 20 MG/2 ML VIAL IV (18:29)
[2024-06-08 20:00] VITALS: BP 105/69; PULSE 83; RESP 17; TEMP 36.6; O2SAT 99
[2024-06-08] MEDS: SENNOSIDES 8.6 MG TABLET 17.2 MG PO (21:56)
[2024-06-09] MEDS: SUCRALFATE 1 GM/10 ML ORAL SUSP PO ×4 (01:18→18:33)
[2024-06-09 06:02] VITALS: BP 107/75; PULSE 98; RESP 18; TEMP 36.6; O2SAT 96
[2024-06-09 06:07] LABS: BUN Creatinine Ratio 21.3 (6-22); Blood Urea Nitrogen 17 mg/dL (7-17); Calcium 8.9 mg/dL (8.4-10.2); Carbon Dioxide 21 mmol/L (22-32); Chloride 97 mmol/L (98-107); Estimated Glomerular Filt Rate > 60 mL/min (>60); Glucose 183 mg/dL (80-110); HEMOLYSIS < 15 (0-50); Potassium 3.4 mmol/L (3.4-5.1); Sodium 127 mmol/L (137-145)
[2024-06-09 08:00] VITALS: BP 99/65; PULSE 84; RESP 16; TEMP 36.3; O2SAT 97
[2024-06-09] MEDS: FLUDROCORTISONE 0.1 MG TABLET 0.05 MG PO (09:25)
[2024-06-09] MEDS: HYDROCORTISONE 10 MG TABLET 20 MG PO (09:26)
[2024-06-09] MEDS: PANTOPRAZOLE DR 40 MG TABLET PO ×2 (09:26→21:31)
[2024-06-09] MEDS: FUROSEMIDE 20 MG/2 ML VIAL IV (10:23)
[2024-06-09] MEDS: POTASSIUM CHLORIDE 20 MEQ TAB 40 MEQ PO (11:09)
--- NOTE | 2024-06-09 12:20 | CM.DPC ---
DCP Cont. Reviewed EMR and team rounds for status updates. Pt has been medically cleared for home d/c, no further d/c assistance needs indicated at this time.
[2024-06-09 13:48] LABS: BUN Creatinine Ratio 23.8 (6-22); Blood Urea Nitrogen 19 mg/dL (7-17); Calcium 8.8 mg/dL (8.4-10.2); Carbon Dioxide 23 mmol/L (22-32); Chloride 94 mmol/L (98-107); Estimated Glomerular Filt Rate > 60 mL/min (>60); Glucose 240 mg/dL (80-110); HEMOLYSIS 33 (0-50); Potassium 3.6 mmol/L (3.4-5.1); Sodium 127 mmol/L (137-145)
--- NOTE | 2024-06-09 14:22 | P.DS_ITS ---
History of Present Illness History of Present Illness Chief complaint: sent from [facility] abd pain Narrative: From ED rpovider: Patient comes into the ED from home for evaluation of epigastric pain ongoing and persistent for the past 3 weeks, describes it as aching sensation nothing makes it better or worse, states that she has had associated nausea without vomiting. She states that the symptoms have persisted. Denies any headache visual disturbances chest pain shortness of breath fever chills or any other GI/ some time. No recent travel no known sick contacts, states she only takes insulin, blood sugars have been well controlled otherwise. No trauma no falls not on any blood thinners. patient states has only had an appendectomy when she was younger. patient does not see a family partner or GI doctor Severity scale (1-10): 5 Additional information: She presented a week is in epic pain ongoing for 3 weeks. She has been under a lot of stress with her and some medical issues he was going through. She was found to have hyponatremia, sodium was 118 and she was started on saline. She did correct up to 122 so we will hold saline for the next 4 hours and monitor. She denies history of ulcer, vomiting, hematemesis, melena, or blood per rectum. She denies any dysuria or hematuria but does have a history of occult UTI in the past. She was started on antibiotics in the emergency department. She was no history of hyponatremia. She has had very poor oral intake for the last several days. She denies fevers, or chills. Discharge Providers Provider Date of admission: 06/03/24 13:33 Primary care physician: Yung Adan MD Consults: 06/05/24 09:18 Consult to General Surgery Routine Comment: Consulting Provider: Mindy Mckeon Reason for consultation: gastritis, EGD late afternoon Has provider been notified: Yes Discharge provider: Shahriar Galdamez MD Exam Vital Signs (past 8 hours): - 06/09/24 08:00 Temperature 97.4 F L Pulse Rate 84 Respiratory Rate 16 Blood Pressure 99/65 Pulse Oximetry 97 Oxygen Flow Rate 0 Oxygen Delivery Method Room Air Oxygen Flow Rate 0 Objective Labs 06/08/24 05:37 06/09/24 13:07 Labs: Laboratory Results - last 24 hr 06/08/24 06/09/24 06/09/24 15:22 05:30 13:07 Sodium 123 L 127 L 127 L Potassium 4.3 3.4 3.6 Chloride 95 L 97 L 94 L Carbon Dioxide 21 L 21 L 23 BUN 11 17 19 H Creatinine 0.69 0.80 0.80 Estimated GFR > 60 > 60 > 60 BUN/Creatinine Ratio 15.9 21.3 23.8 H Glucose 190 H 183 H 240 H Calcium 8.4 8.9 8.8 PFSH Medical History Diabetes Family History Father Cancer COPD (chronic obstructive pulmonary disease) Mother No problems noted. Social History household members: spouse Smoking Status: Former smoker alcohol intake: current Discharge Plan Discharge Plan Provider Discharge Comment: Stable for discharge home. We will continue hydrocortisone and Florinef until follow up. Repeat labs in 3-4 days. Discharge orders & Medications Discharge Orders: Discharge (Order); Ordered 06/09/24 Ordered By: Shahriar Galdamez Prescriptions: New sucralfate 100 mg/mL Suspension 1 gm PO Q6HR Qty: 14 0RF pantoprazole 40 mg Tablet,Delayed Release (Dr/Ec) 40 mg PO BID Qty: 60 2RF hydrocortisone [Cortef] 10 mg Tablet 20 mg PO DAILY Qty: 30 2RF fludrocortisone 0.1 mg Tablet 0.05 mg PO DAILY Qty: 30 2RF Continued (DME) Dexcom G6 Sensor Device MISCELLANEOUS (DME) Dexcom G6 Transmitter Device MISCELLANEOUS insulin lispro 100 unit/mL solution See Rx Instructions .ROUTE .COMPLEX Patient Comments: Insulin pump used with Dexcom for basal infusion rate adjustment. Rx Instructions: per endocrinology Follow up/Referrals: Yung Adan MD [Primary Care Provider] - Discharge Health Status Multidrug resistant organism: No MDRO Diet/Activity/Treatments Diet: Carb-consistent/Diabetic Visit Report/Discharge Packet Instructions: [place] Disease, DI for Gastritis, DI for Hyponatremia, DI for Esophagitis Stand Alone Forms: Patient Portal/API Discharge Data Primary Care Provider: Yung Adan
[2024-06-09] MEDS: INSULIN LISPRO 100 UNIT/ML 3ML VIAL 7 UNIT SUBCUT (15:03)
[2024-06-09 16:00] VITALS: BP 97/56; PULSE 80; RESP 16; TEMP 36.4; O2SAT 100
--- NOTE | 2024-06-09 17:43 | PM.PN.1 ---
Subjective Subjective Interval history: She has had some new hyperglycemia from her hydrocortisone. She was otherwise doing well and denies any epigastric pain. His appetite is still slowly improving. Her sodium is 127. Exam Vital Signs (past 8 hours): Oxygen Delivery Method Room Air Oxygen Flow Rate 0 Narrative Exam Narrative: NAD, alert and oriented. Fluent speech. Lungs are clear, normal rate and effort. Heart is regular, no murmur gallop or rub. Abdomen is soft, non distended. Extremities are free of edema. Objective Labs 06/08/24 05:37 06/09/24 13:07 Labs: Laboratory Results - last 24 hr 06/08/24 06/09/24 06/09/24 15:22 05:30 13:07 Sodium 123 L 127 L 127 L Potassium 4.3 3.4 3.6 Chloride 95 L 97 L 94 L Carbon Dioxide 21 L 21 L 23 BUN 11 17 19 H Creatinine 0.69 0.80 0.80 Estimated GFR > 60 > 60 > 60 BUN/Creatinine Ratio 15.9 21.3 23.8 H Glucose 190 H 183 H 240 H Calcium 8.4 8.9 8.8 PFSH Medical History Diabetes Family History Father Cancer COPD (chronic obstructive pulmonary disease) Mother No problems noted. Social History household members: spouse Smoking Status: Former smoker alcohol intake: current Assessment & Plan Assessment & Plan narrative: 1. Hyponatremia, present on admission and improving. -continue saline and hydrocortisone 2. Adrenal insufficiency, new and active. 3. Gastritis, present on admission and improving. 4. DM 1, present on admission and active. Insulin-dependent. Plan: Increase insulin pump rate to 3.5 stop fludrocortisone continue hydrocortisone 20 mg daily delay discharge to 06/10 DA: 06/10. Time-Based Coding :: 30 min spent with patient and on the chart (including review of chart, obtaining history, exam, reviewing outside data, placing orders, documenting exam and treatment plan, and counseling patient) on 06/09.
[2024-06-09] MEDS: BISACODYL 10 MG SUPP PR (18:33)
[2024-06-09] MEDS: INSULIN PUMP SUBCUT (18:33)
[2024-06-09 20:00] VITALS: BP 110/66; PULSE 74; RESP 18; TEMP 37.1; O2SAT 98
[2024-06-09] MEDS: SODIUM CHLORIDE 0.9% 1,000 ML 84 ML IV (21:16)
[2024-06-09] MEDS: SENNOSIDES 8.6 MG TABLET 17.2 MG PO (21:31)
[2024-06-10 04:00] VITALS: BP 110/60; PULSE 77; RESP 18; TEMP 37; O2SAT 95
[2024-06-10 06:33] LABS: BUN Creatinine Ratio 23.1 (6-22); Blood Urea Nitrogen 15 mg/dL (7-17); Calcium 8.3 mg/dL (8.4-10.2); Carbon Dioxide 22 mmol/L (22-32); Chloride 100 mmol/L (98-107); Estimated Glomerular Filt Rate > 60 mL/min (>60); Glucose 111 mg/dL (80-110); HEMOLYSIS < 15 (0-50); Potassium 3.6 mmol/L (3.4-5.1); Sodium 128 mmol/L (137-145)
[2024-06-10] MEDS: SUCRALFATE 1 GM/10 ML ORAL SUSP PO (06:45)
[2024-06-10] MEDS: FLEETS ENEMA 1 EACH PR (06:45)
[2024-06-10 08:00] VITALS: BP 96/55; PULSE 86; RESP 16; TEMP 36.3; O2SAT 98
--- NOTE | 2024-06-10 09:05 | P.DS_ITS ---
History of Present Illness History of Present Illness Chief complaint: sent from [facility] abd pain Narrative: From H&P: Patient comes into the ED from home for evaluation of epigastric pain ongoing and persistent for the past 3 weeks, describes it as aching sensation nothing makes it better or worse, states that she has had associated nausea without vomiting. She states that the symptoms have persisted. Denies any headache visual disturbances chest pain shortness of breath fever chills or any other GI/ some time. No recent travel no known sick contacts, states she only takes insulin, blood sugars have been well controlled otherwise. No trauma no falls not on any blood thinners. patient states has only had an appendectomy when she was younger. 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 She has been under a lot of stress with her and some medical issues he was going through. She was found to have hyponatremia, sodium was 118 and she was started on saline. She did correct up to 122 so we will hold saline for the next 4 hours and monitor. She denies history of ulcer, vomiting, hematemesis, melena, or blood per rectum. She denies any dysuria or hematuria but does have a history of occult UTI in the past. She was started on antibiotics in the emergency department. She was no history of hyponatremia. She has had very poor oral intake for the last several days. She denies fevers, or chills. Discharge Providers Provider Date of admission: 06/03/24 13:33 Discharge Date: 06/10/24 Primary care physician: Yung Adan MD Consults: 06/05/24 09:18 Consult to General Surgery Routine Comment: Consulting Provider: Mindy Mckeon Reason for consultation: gastritis, EGD late afternoon Has provider been notified: Yes Discharge provider: Shahriar Galdamez MD Summary Hospital Course Discharge Diagnosis: 1. Hyponatremia, present on admission and improving. 2. Adrenal insufficiency, new and active. 3. Gastritis, present on admission and improving. 4. DM 1, present on admission and active. Insulin-dependent. Hospital Course: She was admitted the hospital with acute hyponatremia and epigastric abdominal pain. Her sodium was initially 118. She was treated with saline with minimal improvement. Her initial urine sodium was quite high at over 180. Salt tablets were added and she was diuresed with again minimal improvement. A Cortrosyn stimulation test was performed and appeared to be positive. She was started on hydrocortisone 20 mg daily and ultimately Florinef was added to this. She did have improvement of her sodium up to 128 with these measures. Unfortunately her glucose also escalated from the steroids. Her pump was adjusted up with a rate of 3.5 from 3 at her pre-hospital rate. Her Florinef was stopped and her epigastric abdominal pain improved. She did undergo endoscopy which was consistent with severe gastritis and mild duodenitis. On the day of discharge her blood sugars were improved with a base rate of 3.5 on her pump. She will be discharged on hydrocortisone at 20 mg daily and PPI b.i.d., specifically Protonix 40 mg. Status at Discharge Cognitive/behavioral status at discharge: oriented Functional status at discharge: independent ambulation Overall status at discharge: patient is back to baseline Time Spent with Patient Time spent: Greater than 30 minutes Exam Vital Signs (past 8 hours): - 06/10/24 04:00 Temperature 98.6 F Pulse Rate 77 Respiratory Rate 18 Blood Pressure 110/60 Pulse Oximetry 95 Oxygen Flow Rate 0 Oxygen Delivery Method Room Air Oxygen Flow Rate 0 Narrative Exam Narrative: NAD, alert and oriented. Fluent speech. Lungs are clear, normal rate and effort. Heart is regular, no murmur gallop or rub. Abdomen is soft, non distended. Extremities are free of edema. Objective Imaging CT scan - abdomen: Radiologist's impression: 1. Diffuse gastric wall thickening and edema concerning for gastritis. No bowel obstruction. No other area of abnormal bowel wall thickening. No free fluid or free air. 2. Age indeterminate anterior wedge compression deformity at L2 level with up to 50% loss of L2 vertebral body height. Degenerative disc disease throughout lower thoracic and lumbar spine. 3. Well-circumscribed hypodense areas are seen scattered in liver parenchyma likely represent hepatic cysts. Chest x-ray: Radiologist's impression: No acute cardiopulmonary pathology. Labs 06/08/24 05:37 06/10/24 05:28 Labs: Laboratory Results - last 24 hr 06/09/24 06/10/24 13:07 05:28 Sodium 127 L 128 L Potassium 3.6 3.6 Chloride 94 L 100 Carbon Dioxide 23 22 BUN 19 H 15 Creatinine 0.80 0.65 Estimated GFR > 60 > 60 BUN/Creatinine Ratio 23.8 H 23.1 H Glucose 240 H 111 H D Calcium 8.8 8.3 L [facility] Medical History Diabetes Family History Father Cancer COPD (chronic obstructive pulmonary disease) Mother No problems noted. Social History household members: spouse Smoking Status: Former smoker alcohol intake: current Discharge Assessment & Plan Assessment and Plan Assessment: 1. Hyponatremia, present on admission and improving. 2. Adrenal insufficiency, new and active. 3. Gastritis, present on admission and improving. 4. DM 1, present on admission and active. Insulin-dependent. Plan of Treatment: Discharge home with Protonix 40 b.i.d. for 2-3 months, and hydrocortisone at 20 mg daily. She was followed by of endocrinology at [facility]. the nature of her hospitalization was communicated with him. I will ask him to place orders for a follow up BMP in the next week to further track her sodium. Discharge Plan Discharge Plan Patient Disposition: Home Provider Discharge Comment: Stable for discharge home. We will continue hydrocortisone and Florinef until follow up. Repeat labs in 3-4 days. Discharge orders & Medications Prescriptions: New sucralfate 100 mg/mL Suspension 1 gm PO Q6HR Qty: 14 0RF pantoprazole 40 mg Tablet,Delayed Release (Dr/Ec) 40 mg PO BID Qty: 60 2RF hydrocortisone [Cortef] 10 mg Tablet 20 mg PO DAILY Qty: 30 2RF Continued (DME) Dexcom G6 Sensor Device MISCELLANEOUS (DME) Dexcom G6 Transmitter Device MISCELLANEOUS insulin lispro 100 unit/mL solution See Rx Instructions .ROUTE .COMPLEX Patient Comments: Insulin pump used with Dexcom for basal infusion rate adjustment. Rx Instructions: per endocrinology Follow up/Referrals: Yung Adan MD [Primary Care Provider] - Discharge Health Status Multidrug resistant organism: No MDRO Diet/Activity/Treatments Diet: Carb-consistent/Diabetic Visit Report/Discharge Packet Instructions: [place] Disease, Adrenal Crisis, DI for Gastritis, DI for Hyponatremia, DI for Esophagitis Stand Alone Forms: Patient Portal/API Discharge Data Primary Care Provider: Yung Adan
--- NOTE | 2024-06-10 09:18 | CM.DPC ---
DCP Cont. Reviewed EMR and team rounds for status updates. Pt has been medically cleared for home d/c. Her family will arrive this morning to transport her back home. No further DCP needs indicated at this time.
[2024-06-10] MEDS: HYDROCORTISONE 10 MG TABLET 20 MG PO (09:40)
[2024-06-10] MEDS: PANTOPRAZOLE DR 40 MG TABLET PO (09:40)
--- NOTE | 2024-06-10 11:34 | PC.NURSE ---
Pt discharged home at 1130, escorted off floor in wheelchair accompanied by friend and hospital staff. IV removed, discharge teaching completed including new medications, new diagnoses and follow up appointments. Questions and concerns addressed with pt and friend. Patient left the floor with all belongings.
== END 2024-06-10 11:38 | disposition home or self-care (01) | DRG 641 ==
LOC: ED 13:28 → AC 13:34
PROVIDERS: Emergency Medicine; Internal Medicine; Surgery; Admitting Provider Hospitalist; Emergency Provider Student in an Organized Health Care Education/Training Program; PCP Family Medicine; Referring Provider Student in an Organized Health Care Education/Training Program; Visit Provider Hospitalist
PROC: 0DJ08ZZ Inspection of Upper Intestinal Tract, Via Natural or Artificial Opening Endoscopic (ICD-10-PCS; CPT 43235; principal; 2024-06-06 09:00)
DX: E87.1 Hypo-osmolality and hyponatremia (principal); E27.40 Unspecified adrenocortical insufficiency; K29.70 Gastritis, unspecified, without bleeding; D64.9 Anemia, unspecified; K29.80 Duodenitis without bleeding; E10.65 Type 1 diabetes mellitus with hyperglycemia; T38.0X5A Adverse effect of glucocorticoids and synthetic analogues, initial encounter; Z96.41 Presence of insulin pump (external) (internal); Z87.891 Personal history of nicotine dependence
CPT/HCPCS: 36415; 71045; 74177; 80048; 80053; 81001; 82024; 82088; 82533; 82962; 83690; 83735; 84244; 84300; 84443; 84550; 85025; 87086; 93005; 96365; 99284; 99285; J0696; J0834; J1644; J1815; J1940; J2405; J2470; J2704; Q9967

== ENCOUNTER 2024-08-18 17:37 | Emergency (ER) | payer MEDICARE, BC, SELFPAY ==
[2024-06-03 20:04] VITALS: BMI 22.9
[2024-08-18 18:04] VITALS: BP 107/60; PULSE 91; RESP 19; TEMP 36.1; O2SAT 99; BMI 20.7
[2024-08-18 19:23] LABS: Bacteria Urine None Seen; RBC Urine 0-1/HPF (0-5/HPF); Squamous Epithelial Cell Urine 0-1 /HPF (0-5/HPF); Urine Volume 10mL (spun); WBC Urine 0-1/HPF (0-5/HPF)
== END 2024-08-18 20:21 | disposition left against medical advice (07) ==
PROVIDERS: Emergency Provider Emergency Medicine; PCP Family Medicine
DX: M54.50 Low back pain, unspecified (principal)
CPT/HCPCS: 81003; 81015; 87086; 99282